=== PATIENT | female | born 1940 | race Caucasian/White ===

== ENCOUNTER → 2017-01-27 | Outpatient (CLI) | payer OTHER, BC ==
[~2017-01-27] VITALS: Ht 160 cm; Wt 77.3 kg
[~2017-01-27] MED LIST: ACETAMINOPHEN325 M1; ALEVE220 M1 PO; ALEVE220 MG PO; ARTHROTEC 50 E1 EACH PO; ARTHROTEC EC 51 EACH PO; DILAUDID 4 MG TA4 M1; DILAUDID 4 MG TA4 MG PO; DIPHENHYDRAMINE25 M3; FAMOTIDINE PO; INDERAL40 MG PO; INTRAT INTRATHECA; INTRATHECAL MED; KEFLEX500 MG; LASIX 20 MG TAB20 MG PO; LASIX 40 MG TAB40 M2 PO; METHADONE HCL5 MG PO; MIRALAX17 GM PO; OXYCODONE HCL15 MG PO; OXYCODONE-ACET1 EAC2 PO; PEPCID40 MG PO; PERCOCET 5-3251 EACH PO; PERCOCET 7.5-31 EACH PO; PHENERGAN25 M2; PRILOSEC 20 MG20 MG PO; PROPRANOLOL 1010 MG PO; ROXICODONE15 M1 PO; SIMVASTATIN40 MG PO; SKELAXIN 800 M800 M1 PO; STOOL SOFTENER1 EAC2 PO; STOOL SOFTENER50 MG PO; SYNTHROID112 MCG PO; TRAZODONE 150150 M1 PO; TRAZODONE HCL100 MG PO; ZOCOR PO; ZOCOR5 MG; [UNRECOGNIZED DRUG - OTHER]; [UNRECOGNIZED DRUG - SUPPLY]
--- NOTE | ~2017-01-27 | HPC ---
[facility] [address] [place] [address] PAIN MANAGEMENT CONSULTATION Name: ROJAS CABRERA Room #: REG Matt Jack.#: [id number] Admission: 01/27/17 Attend Phys: Savage Doll MD Discharge: Date of : 42 Report #: [id number] THIS REPORT FOR: //name// CC: Kaylee Doll DATE OF SERVICE: 01/27/2017 REASON FOR VISIT: Followup visit for chronic management of intrathecal pump with new symptoms of cervical radiculopathy. HISTORY OF PRESENT ILLNESS: Seen today for refill of her intrathecal pump, but she now has also a new symptom. She is suffering from lumbar radicular pain chronically but has new onset of cervical radicular symptoms to follow quite close with the C7-C8 distribution down into the fourth and fifth digit of her hands bilaterally. This is enough to wake her at night and causes significant pain in the neck and in the shoulders. Her intrathecal pump is due to be refilled. She has been receiving a combination of clonidine, hydromorphone and bupivacaine, which has in the past been helpful. New pump and catheter system was placed in May of last year by Dr. Lugo after revision was required and that she has done quite well since that time. Despite this aggressive intrathecal therapy, she has ongoing daily pain that she scores as high as at 9. Her back hurts, particularly when she is standing or moving in the wrong position and lying flat in bed. She gets relief from her medications in finding a comfortable place to sit. MEDICATIONS: In addition to her intrathecal pump include trazodone, omeprazole, levothyroxine, Lasix, simvastatin, MiraLax, Inderal, oxycodone 15 mg taken for breakthrough pain. ALLERGIES: None. PAST MEDICAL HISTORY: Significant for multiple skeletal comorbidities with severe arthropathy throughout multiple joints. She has had significant spinal problems with multiple surgeries including a C5-C6, C6-C7 fusion using an anterior approach in the past. She also has had severe scoliosis and spinal stenosis, degenerative disk disease and reportedly has lost up to 6 inches and height over the course of her 50s and 60s. She is now 76 with chronic intractable pain. PHYSICAL EXAMINATION: GENERAL: She was delightful and pleasant. She appears to be in some discomfort today. VITAL SIGNS: Blood pressure 148/65, heart rate is 50 and respirations are 16. [address] [address] PAIN MANAGEMENT CONSULTATION Name: ROJAS CABRERA Room #: REG CLI [facility].#: [id number] Admission: 01/27/17 Attend Phys: Savage Doll MD Discharge: Date of : 42 Report #: [id number] BMI is measured at 30.2. MUSCULOSKELETAL: Marked scoliosis of the spine is noted. She has tenderness and discomfort throughout the spine and neck. Cervical range of motion is performed with exacerbation of radiculopathy with neck extension. 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 She has normal biceps and triceps function. Most notably and examining the lower extremities, she has no evidence of hyperreflexia to suggest cord compression. IMPRESSION: 1. Cervical radiculopathy involving the C7-C8 distribution. 2. Severe scoliosis, spinal stenosis and degenerative disk disease with intractable back pain and lumbar radiculopathy. 3. Management of intrathecal infusion pump with refill. 4. Management of high risk opioid medication. 5. History of osteoarthritis, status post knee replacement, bilateral. 6. Fibromyalgia. 7. Hypothyroidism. PROCEDURE #1: Refill of intrathecal infusion pump. PROCEDURE NOTE: The patient was placed in the supine position. Skin was prepped with ChloraPrep. Skin was anesthetized with 1% lidocaine and a 30 gauge needle. A 22-gauge non-coring needle was then advanced into the intrathecal pump. Old medication was removed and discarded. The pump was then refilled with medications infused are hydromorphone 6.5, clonidine 30.3, bupivacaine 1.7, low reservoir alarm date is now 85 days and IGOR is 69 months. PROCEDURE #2: Cervical epidural steroid injection under fluoroscopic guidance. PROCEDURE NOTE: She was taken to the fluoroscopic suite for the cervical epidural placed prone. Skin was prepped with ChloraPrep and the skin was anesthetized over the C7-T1 interspace. A 20-gauge Tuohy epidural needle was advanced first attempt into the epidural space with loss of resistance technique. There was no blood nor CSF aspirated, 1 mL of Omnipaque injected. Good spread of dye observed in the epidural space, was followed by 3 mL of 0.5% lidocaine mixed with 80 mg of triamcinolone. She tolerated the cervical injection, but during transport to the recovery room, she had a severe spasm in the sacroiliac region. This required us to reposition or use heating pads and I also provided her with 10 mg of oxycodone as well as a shot of Toradol in the recovery room before discharge. She is able to be [address] [address] PAIN MANAGEMENT CONSULTATION Name: ROJAS CABRERA Room #: REG RANDALL Santiago.#: [id number] Admission: 01/27/17 Attend Phys: Savage Doll MD Discharge: Date of : 42 Report #: [id number] discharged comfortably in the care of her and a followup visit planned as needed for refill. Phone call will be placed to check on this evening. By: [id number] Savage Doll MD /nt
[2017-01-27 11:47] VITALS: BP 148/65
[2017-01-27 11:51] VITALS: BP 148/65
== END | disposition home or self-care (01) ==
LOC: PAIN 07:09
DX: M51.16 Intervertebral disc disorders with radiculopathy, lumbar region (principal); M48.06 Spinal stenosis, lumbar region; M41.86 Other forms of scoliosis, lumbar region; M79.7 Fibromyalgia; F11.23 Opioid dependence with withdrawal; E03.9 Hypothyroidism, unspecified; Z96.653 Presence of artificial knee joint, bilateral; Z87.39 Personal history of other diseases of the musculoskeletal system and connective tissue

== ENCOUNTER 2017-02-16 10:50 | Emergency (ER) | payer OTHER, BC ==
[~2017-02-16] VITALS: Ht 160 cm; Wt 76.7 kg
[2017-02-16 11:31] LABS: BASOPHILS 0.5 % (0.0-2.0); EOSINOPHILS 1.8 % (0.0-3.0); HEMATOCRIT 38.3 % (37.0-47.0); HEMOGLOBIN 13.1 gm/dL (12.0-15.0); LYMPHOCYTES 18.8 % (24.0-44.0); MCH 32.2 pg (26.0-34.0); MCHC 34.3 g/dL (28.0-37.0); MCV 93.9 fL (80.0-100.0); MONOCYTES 8.3 % (1.0-8.0); PLATELET COUNT 195 thou/uL (150-400); POLYS 70.6 % (36.0-66.0); RBC 4.07 mil/uL (4.20-5.00); RDW 13.5 % (10.5-14.5); WBC 9.9 thou/uL (4.0-11.0)
[2017-02-16 11:33] LABS: MANUAL DIFF NO
[2017-02-16 11:46] LABS: CALCIUM 8.8 mg/dL (8.5-10.1); CREATININE 0.8 mg/dL (0.6-1.3); POTASSIUM 3.5 mmol/L (3.5-5.1)
[2017-02-16 11:51] LABS: ALBUMIN 3.5 g/dL (3.4-5.0); DIRECT BILIRUBIN 0.2 mg/dL (<0.1-0.3); TOTAL BILIRUBIN 0.6 mg/dL (<0.1-1.0); TOTAL PROTEIN 6.5 g/dL (6.4-8.2)
[2017-02-16 12:25] LABS: URINE BILIRUBIN NEGATIVE (Negative); URINE BLOOD TRACE (Negative); URINE COLOR YELLOW; URINE GLUCOSE-RANDOM* NEGATIVE (Negative); URINE KETONES NEGATIVE (Negative); URINE NITRITE NEGATIVE (Negative); URINE PROTEIN (DIPSTICK) NEGATIVE (Negative); URINE UROBILINOGEN 0.2 E.U./dl (0.2-1.0)
== END 2017-02-16 14:15 | disposition home or self-care (01) ==
LOC: ER 10:50
PROVIDERS: Emergency Medicine
DX: R10.11 Right upper quadrant pain (principal); M41.9 Scoliosis, unspecified; M51.37 Other intervertebral disc degeneration, lumbosacral region; M79.7 Fibromyalgia; E03.9 Hypothyroidism, unspecified; Z85.828 Personal history of other malignant neoplasm of skin; Z90.722 Acquired absence of ovaries, bilateral; Z90.49 Acquired absence of other specified parts of digestive tract

== ENCOUNTER → 2017-03-28 | Outpatient (CLI) | payer OTHER, BC ==
[~2017-03-28] VITALS: Ht 157.5 cm; Wt 74.8 kg
--- NOTE | ~2017-03-28 | HPC ---
[facility] [address] [place] [address] PAIN MANAGEMENT CONSULTATION Name: ROJAS CABRERA Room #: REG Matt Jack.#: [id number] Admission: 03/28/17 Attend Phys: Savage Doll MD Discharge: Date of : 42 Report #: [id number] THIS REPORT FOR: //name// CC: Kaylee Doll DATE OF SERVICE: 03/28/2017 DATE OF REGISTRATION: 03/28/2017 Followup visit for management of intrathecal infusion pump. The patient returns to pain clinic today for evaluation of her intrathecal infusion pump. She had a couple of her grandchild's dog's jump on her lap and had sudden onset of pain in that area around the pump. It was sore for days. She ended up remaining in bed while the pain was present. Although the pump did not seem to be unstable and there was an excessive bruising, she has been fearful ever since that pump has moved or is no longer providing relief. She has had some increasing pain recently and wants to make sure that the pump is delivering. She is on a complex infusion, which includes hydromorphone, clonidine and bupivacaine. It has been sometimes since we increased her dose. Her daily dose currently is hydromorphone 6.5, clonidine of 30 and bupivacaine of 1.7. She has been taking some additional oral medication and she has adequate amounts of oxycodone 15 mg at home. I provided her with 120 tablets a couple of months ago. She tries not to use it. She has a second prescription to be refilled and she can use it for breakthrough pain. The importance of managing these strong medications under terms of our opioid agreement was reviewed. On physical exam, she is a bit anxious today. Her blood pressure is normal at 139/59, heart rate 64, respirations 16. She is able to move from sitting to standing position, but complains when she does so. She is able to walk with weak, but steady gait. She has marked curvature of her spine. There is tenderness across the scars of her back. Her pump is in the right lower quadrant and the abdomen is nontender at this time. I tried to move it to see if there was any loosening of the sutures that might cause flipping. I was unable to mobilize the pump in any fashion. So I think that still is in a good upright position. Straight leg raising reproduces some radicular symptoms into her legs. IMPRESSION: 1. Chronic back pain with post-laminectomy syndrome, severe scoliosis, spinal stenosis, degenerative disk disease. 2. Management of intrathecal infusion pump. Plan is to adjust the dose very [address] [address] PAIN MANAGEMENT CONSULTATION Name: CABRERAROJAS KYE Room #: REG Matt Schmidt.Chan.#: [id number] Admission: 03/28/17 Attend Phys: Savage Doll MD Discharge: Date of : 42 Report #: [id number] slightly today after we confirm that is functioning. 3. Management of high risk opioid medication. She does not need renewal of medications today. 4. Diffuse osteoarthritis, status post bilateral knee replacements. 5. Fibromyalgia. 6. Hypothyroid. 7. Cervical radiculopathy. RECOMMENDATIONS: 1. We will check up the pump today with pump diagnostics including the pump myelogram through the catheter and side port and also check of rotor to make sure the pump is functioning. 2. Possible return in a week or two for epidural steroid injection in the lumbar region. 3. Adjust pump, which was done at the conclusion of our reprogramming session. PROCEDURE: She was taken to the fluoroscopic suite for pump diagnostics. Skin was prepped with ChloraPrep. Skin was anesthetized over the side port. A 24-gauge side port needle advanced into the pump by palpation. I was able to easily aspirate 2 mL of fluid to totally clear the catheter. I then injected 3 mL of Omnipaque 240 demonstrating intrathecal spread of dye and no extravasation. Pump was then checked with a rotor test. The rotor noted to be moving appropriately during the priming bolus in a catheter clockwise fashion. My conclusion is the pump is functioning fine. The plumbing and the mechanics seem to be adequate. I will increase her pump medication slightly and I have given her reassurances that the use of some oral medication supplement at this time is okay. In terms of our opioid agreement, we reviewed and she was discharged with a followup visit for pump refill in 3-4 weeks. By: [id number] Savage Doll MD /nt
[2017-03-28 13:30] VITALS: BP 139/59
== END ==
LOC: PAIN 07:43
DX: Z45.1 Encounter for adjustment and management of infusion pump (principal); M54.12 Radiculopathy, cervical region; G89.29 Other chronic pain; M96.1 Postlaminectomy syndrome, not elsewhere classified; M48.00 Spinal stenosis, site unspecified; E03.8 Other specified hypothyroidism; M79.7 Fibromyalgia

== ENCOUNTER → 2017-04-14 | Outpatient (CLI) | payer OTHER, BC ==
[~2017-04-14] VITALS: Ht 157.5 cm; Wt 76.2 kg
--- NOTE | ~2017-04-14 | HPC ---
[facility] [address] [place] [address] PAIN MANAGEMENT CONSULTATION Name: ROJAS CABRERA Room #: REG RANDALL Dennys#: [id number] Admission: 04/14/17 Attend Phys: Savage Doll MD Discharge: Date of : 42 Report #: [id number] THIS REPORT FOR: //name// CC: Kaylee Doll DATE OF SERVICE: 04/14/2017 DATE OF REGISTRATION: 04/14/2017. REASON FOR VISIT: Followup visit for severe spinal degenerative disease, post-laminectomy syndrome, scoliosis and lumbar radiculopathy. SUBJECTIVE: The patient is here today for refill of her intrathecal infusion pump. Pain has been worsening, and she feels that her ability to function has been declining. Pain is fairly significant in the left leg where she has radicular symptoms all the way to the foot. It is worse with weightbearing. She is already on a complex infusion in her intrathecal pump, which includes hydromorphone, clonidine, and bupivacaine. Her daily dose is hydromorphone 6.5, clonidine 30 mcg per day, and bupivacaine 1.7. She also has some oral oxycodone to take for breakthrough. Today, I have agreed that we will refill her intrathecal infusion pump, adjust her dose, and we will also provide her with an epidural steroid injection under fluoroscopic guidance with hopes that we might provide some relief of her radicular symptoms. IMPRESSION: 1. Chronic low back pain with post-laminectomy syndrome, severe scoliosis and degenerative disk disease. 2. Management of intrathecal infusion pump. 3. Diffuse osteoarthritis, status post bilateral knee replacements. 4. Fibromyalgia. 5. Hypothyroidism. 6. Cervical radiculopathy. 7. Chronic intractable pain with diffuse origin. 8. Management of high-risk medication. PROCEDURE #1: She was placed in the supine position for pump refill first. Her skin was prepped with ChloraPrep. Skin was anesthetized, and a 22-gauge non-coring needle advanced in the pump. Old medication removed and discarded and refilled with clonidine, hydromorphone and bupivacaine. Reprogramming session performed. I plan to see her back in a couple of months. [address] [address] PAIN MANAGEMENT CONSULTATION Name: RICKROJAS KYE Room #: REG [facility]..#: [id number] Admission: 04/14/17 Attend Phys: Savage Doll MD Discharge: Date of : 42 Report #: [id number] PROCEDURE #2: Epidural steroid injection under fluoroscopic guidance. As recommended, she was taken to fluoroscopic suite for the injection. She was placed prone. Skin prepped with ChloraPrep. Skin was anesthetized over the L4-L5 interspace. It should be noted that the anatomy is extremely distorted in her lumbar spine. I was able to identify a location between the L4 and L5 interspinous processes and advanced the needle into the epidural space with good loss of resistance. There was no blood in her CSF aspirated. I took a lateral view, and there was no evidence of anterior spread; however, once I injected 3 mL of 1% lidocaine mixed with 80 mg of triamcinolone, she developed a fairly significant weakness, was taken to recovery room where she required stay for over an hour before she could ambulate to the car. Good news is that she had no pain during that time. I think got good coverage along the left lateral recess to provide cortisone into the location. PLAN: For her, is to follow up in the pain clinic for refill in 2 months. They will call if there are any questions regarding her injection. By: [id number] Savage Doll MD /nt
[2017-04-14 14:19] VITALS: BP 120/44
== END | disposition home or self-care (01) ==
LOC: PAIN 07:22
DX: M54.16 Radiculopathy, lumbar region (principal); M96.1 Postlaminectomy syndrome, not elsewhere classified; M41.9 Scoliosis, unspecified; M17.0 Bilateral primary osteoarthritis of knee; M79.7 Fibromyalgia; E03.9 Hypothyroidism, unspecified; M54.12 Radiculopathy, cervical region; G89.29 Other chronic pain

== ENCOUNTER → 2017-07-04 | Outpatient (CLI) | payer OTHER, BC ==
[~2017-07-04] VITALS: Ht 160 cm; Wt 74.8 kg
--- NOTE | ~2017-07-04 | HPC ---
[facility] [place] [address] PAIN MANAGEMENT CONSULTATION Name: ROJAS CABRERA Room #: REG RANDALL Jack.#: [id number] Admission: 07/04/17 Attend Phys: Savage Doll MD Discharge: Date of : 42 Report #: [id number] THIS REPORT FOR: //name// CC: KAIT Doll DATE OF SERVICE: 07/04/2017 Followup visit for chronic intractable back pain, management of intrathecal infusion pump. The patient returns to pain clinic today and this is a fairly routine visit. She has been stable on her current medication regimen. She has taken a few extra oxycodone, which she uses a supplement this month and I have agreed to renew that medication for her. Her current intrathecal infusion provides a combination of hydromorphone, clonidine and bupivacaine. She is on her second intrathecal pump, still has about 5 years remaining on the battery life of this particular device. She is here today for refill. She reports that she is having of the last 2 weeks as her , Deven has had a hip replacement. This is at times exacerbated her pain requiring her use it, but more of a breakthrough oral medication. She is at pretty high doses right now of her current medicines, I just do not increase her pump further due to risks of granuloma. MEDICATIONS: Reviewed and reconciled. ALLERGIES: None. PHYSICAL EXAMINATION: She is pleasant and upbeat today, she has marked scoliotic spine. She is able to move independently from sitting to standing position, ambulates with a slow gait. Kyphosis is noted in the standing position. She has diffuse tenderness throughout the back. She complains of pain bilaterally in both legs and multiple myofascial tender points consistent with fibromyalgia. She has a very pleasant outgoing affect. We had a nice conversation today, she does not appear to be overmedication, depressed or anxious. IMPRESSION: 1. Chronic intractable back pain with severe kyphoscoliosis. 2. Diffuse osteoarthritis, status post bilateral knee replacements. Multiple joint arthritis is noted. 3. Fibromyalgia. 4. Hypothyroidism. 5. Cervical radiculopathy. [facility] [address] [place] [address] PAIN MANAGEMENT CONSULTATION Name: ROJAS CABRERA [facility]#: [id number] Admission: 07/04/17 Attend Phys: Savage Doll MD Discharge: Date of : 42 Report #: [id number] 6. Management of intrathecal infusion pump with refill and reprogramming. 7. Management of high risk medication. PROCEDURE: Skin was prepped with ChloraPrep, skin anesthetized and a 22-gauge non-coring needle advanced in the pump. Old medication removed and discarded. Pump was refilled with hydromorphone, clonidine and bupivacaine. Daily doses are 6.8/31/1.8. IGOR is 64 months. Next refill is scheduled for 09/23/2017. Medications provided under terms of our opioid agreement today are oxycodone 15 mg 1 tablet q.6 hours p.r.n. severe pain. She was given a prescription for 120 tablets, second prescription provided for the course of her refill. Importance of safeguarding medication was discussed. Reviewed the CDC guidelines and the opioid crisis in the [place]. By: 1535 20 Savage Doll MD /nt
[2017-07-04 14:13] VITALS: BP 135/68
== END | disposition home or self-care (01) ==
LOC: PAIN 07:24
DX: Z45.1 Encounter for adjustment and management of infusion pump (principal); M41.86 Other forms of scoliosis, lumbar region; M54.5 Low back pain; G89.29 Other chronic pain; M54.12 Radiculopathy, cervical region; M17.0 Bilateral primary osteoarthritis of knee; M79.7 Fibromyalgia; E03.8 Other specified hypothyroidism; Z98.890 Other specified postprocedural states; Z79.891 Long term (current) use of opiate analgesic

== ENCOUNTER → 2017-11-24 | Outpatient (CLI) | payer OTHER, BC ==
[~2017-11-24] VITALS: Ht 160 cm; Wt 75.1 kg
[~2017-11-24] MED LIST changes: +ASPIR 8181 M1 PO
--- NOTE | ~2017-11-24 | HPC ---
[facility] [place] [address] PAIN MANAGEMENT CONSULTATION Name: ROJAS CABRERA Room #: REG Matt Jack.#: [id number] Admission: 11/24/17 Attend Phys: Savage Doll MD Discharge: Date of : 42 Report #: [id number] THIS REPORT FOR: //name// CC: Kaylee Doll DATE OF SERVICE: 11/24/2017 Followup visit for severe kyphoscoliosis and management of intrathecal infusion pump. The patient returns to the pain clinic today for refill of intrathecal infusion pump. She is doing well. She has hydromorphone, clonidine and bupivacaine infusing through her intrathecal pump. She reports that her pain has been pretty good over the last few months. No adjustment of medication will be needed. In addition to her pain pump, she is provided with oxycodone 15 mg, which she is allowed to take up to 5 times a day. She is on an opioid agreement and understands the importance of safeguarding all of her medications. The medication continues to be helpful for her. She has been able to reduce some of her medication orally because of the recent improvement in her pain. We are not sure what the cause of this improvement is, but she has remained more active. We are trying to keep her at 90 morphine milligram equivalents a day in keeping with the CDC guidelines. PHYSICAL EXAMINATION: GENERAL: Today, she is pleasant, alert and oriented, without signs of overmedication. VITAL SIGNS: Blood pressure is 135/88, heart rate is 80. MUSCULOSKELETAL: Pump is in the left lower quadrant, nontender. Marked kyphoscoliosis of the spine is noted. IMPRESSION: 1. Chronic back pain with severe kyphoscoliosis. 2. Osteoarthritis, multiple joints. 3. Fibromyalgia. 4. Cervical radiculopathy. 5. Management of high-risk medications under terms of an opioid agreement. 6. Management of intrathecal infusion pump with reprogramming and refill. PQRS STATEMENT: She does not smoke. She is not hypertensive. She is a fall risk and moves about cautiously with her scoliosis. All medications were reviewed and reconciled from her electronic medical record. We talked about continuing the activities of motion for osteoarthritis. [address] [address] PAIN MANAGEMENT CONSULTATION Name: ROJAS CABRERA Room #: REG [facility].#: [id number] Admission: 11/24/17 Attend Phys: Savage Doll MD Discharge: Date of : 42 Report #: [id number] PROCEDURE: Refill and reprogramming. DESCRIPTION OF PROCEDURE: The skin was prepped with ChloraPrep. Skin anesthetized. A 22-gauge non-coring needle advanced in the intrathecal pump. Old medication was removed and discarded. The pump was refilled with hydromorphone, clonidine and bupivacaine. Reprogramming session was performed with her daily dose is 7.8 of hydromorphone, 36 of clonidine and 2.0 of bupivacaine. Her refill interval is now 71 days. We will see her back in the pain clinic for refill sometime in January. <ELECTRONICALLY SIGNED> By: Savage Doll MD 01/18/18 [id number] [id number] Savage Doll MD /nt
[2017-11-24 13:46] VITALS: BP 121/60
== END | disposition home or self-care (01) ==
LOC: PAIN 07:20
DX: Z45.1 Encounter for adjustment and management of infusion pump (principal); M41.9 Scoliosis, unspecified; M19.90 Unspecified osteoarthritis, unspecified site; M79.7 Fibromyalgia; M54.12 Radiculopathy, cervical region

== ENCOUNTER → 2018-01-30 | Outpatient (CLI) | payer OTHER, BC ==
[~2018-01-30] VITALS: Ht 160 cm; Wt 75.6 kg
--- NOTE | ~2018-01-30 | HPC ---
[facility] [address] [address] PAIN MANAGEMENT CONSULTATION Name: ROJAS CABRERA Room #: REG [facility] Jack.#: [id number] Admission: 01/30/18 Attend Phys: Savage Doll MD Discharge: Date of : 42 Report #: [id number] THIS REPORT FOR: //name// CC: Kaylee Doll DATE OF SERVICE: 01/30/2018 Followup visit for management of intrathecal infusion pump and high-risk medications under terms of written opioid agreement. The patient is here today to refill her intrathecal pump. We have been trying to reduce her reliance on systemic opioids by increasing her intrathecal medications. She has been taking up to 5 oxycodone 15 mg tablets. She did see some improvement with her last increase. I will increase the pump again by 8% today. She has a complex infusion containing hydromorphone, clonidine, and bupivacaine. It is a 40 mL pump. On physical exam today, she is pleasant, alert and oriented. She has no signs of anxiety or depression. Her blood pressure is 132/83, heart rate 61, respirations 20, O2 sat 100%. BMI is 29. She has marked curvature and scoliosis. She has pump noted over left lower quadrant of her abdomen, which is nontender. She walks with a cane. PQRS review shows that she has history of rheumatoid arthritis involving left upper and lower extremities. She is a fall risk and needs help standing and walking using a cane. She has not fallen in the last 3 months. She is on no blood thinners and no hypertension is treated. She is on an opioid agreement, which has been signed and reviewed on several occasions, last signed on 05/17/2016. We performed a functional assessment tool which is 26/70, not too bad and improvement over her initial presentation years ago. She is at low risk for addiction. IMPRESSION: 1. Chronic low back pain with severe scoliosis. 2. Management of intrathecal infusion pump. PROCEDURE: Refill and reprogramming. Skin was prepped with ChloraPrep and anesthetized. A 22-gauge non-coring needle advanced in the pump and old medication was removed and discarded. The pump was refilled with hydromorphone, clonidine, bupivacaine and reprogramming session was performed. Her discharge programming information was provided for her as well on discharge and will be as follows: Hydromorphone 8.4 mg, clonidine 39.2 [place] [address] PAIN MANAGEMENT CONSULTATION Name: ROJAS CABRERA [facility] #: [id number] Admission: 01/30/18 Attend Phys: Savage Doll MD Discharge: Date of : 42 Report #: [id number] mcg, bupivacaine 2.2 mg per day. Estimated IGOR is 57 months. Low reservoir volume is 39.5. Refill interval is 66 days. <ELECTRONICALLY SIGNED> By: Savage Doll MD 02/27/18 1408 1627 20 Savage Doll MD /preet
[2018-01-30 13:07] VITALS: BP 132/83
== END | disposition home or self-care (01) ==
LOC: PAIN 07:20
DX: Z45.2 Encounter for adjustment and management of vascular access device (principal); G89.29 Other chronic pain; M41.9 Scoliosis, unspecified; Z98.890 Other specified postprocedural states

== ENCOUNTER → 2018-04-03 | Outpatient (CLI) | payer OTHER, BC ==
[~2018-04-03] VITALS: Ht 160 cm; Wt 76.0 kg
[~2018-04-03] MED LIST changes: -ASPIR 8181 M1 PO
--- NOTE | ~2018-04-03 | HPC ---
[facility] [place] [address] PAIN MANAGEMENT CONSULTATION Name: ROJAS CABRERA Room #: REG RNADALL Dennys#: [id number] Admission: 04/03/18 Attend Phys: Savage Doll MD Discharge: Date of : 42 Report #: [id number] THIS REPORT FOR: //name// CC: EFRAIN Doll DATE OF SERVICE: 04/03/2018 Followup visit for chronic back pain related to severe scoliosis with kyphosis. The patient returns today for refill of her intrathecal infusion pump. She was last seen 2 months ago. In addition to her clonidine, bupivacaine, and hydromorphone infusion, she receives oxycodone 10/325 four times daily. This combination has allowed her to live a normal fairly normal life despite her severe debility related to some changes throughout her spine. The patient has had joint replacement surgeries, has spinal stenosis, a cervical fusion, ankle fusion and suffers from fibromyalgia. Pump has been helpful in keeping her out of the hospital and the Emergency Room and she is also grateful for the breakthrough medication, which she tolerates well without significant side effects. She is on opioid agreement, which has been reviewed today. We talked about the CDC guidelines as well as her opioid risk. PHYSICAL EXAMINATION: The patient is pleasant, alert and oriented. She moves from sitting to standing position and walks without a cane. She is not a fall risk at this time. Pain score today is listed at anywhere between a 1 and a 10 depending on activities. With standing, her pain score is 1. Marked rotational curvature of the spine is noted. She has kyphosis as well. Scar is nontender. Straight leg raising is performed without radiculopathy. She has tenderness in multiple joints and diffuse myofascial tenderness consistent with fibromyalgia. IMPRESSION: 1. Chronic intractable back pain secondary to severe scoliosis and spondylosis. 2. Cervical radiculopathy, improved at this time. 3. History of chronic back pain and osteoarthritis. 4. Management of intrathecal infusion pump with refill and reprogramming. 5. Management of opioid medications under terms of written opioid agreement. PROCEDURE: Skin prepped with ChloraPrep. Skin anesthetized. A 22-gauge non-coring needle advanced in the pump. Old medication removed and discarded. Pump was refilled with a combination noted above. Daily doses at discharge, hydromorphone 8.4, clonidine 40, bupivacaine 2.25. Refill is scheduled for 06/08/2018. Low reservoir alarm is 2.0. Prescriptions were written for 2 months for her oral medications under terms of [place] [address] PAIN MANAGEMENT CONSULTATION Name: ROJAS CABRERA KYE Room #: REG [facility] Dennys#: [id number] Admission: 04/03/18 Attend Phys: Savage Doll MD Discharge: Date of : 42 Report #: [id number] instructions to safeguard medication carefully. We will see her back in the pain clinic in May. By: [id number] Savage Doll MD /preet
[2018-04-03 11:00] VITALS: BP 133/46
== END | disposition home or self-care (01) ==
LOC: PAIN 07:08
DX: Z45.1 Encounter for adjustment and management of infusion pump (principal); M41.86 Other forms of scoliosis, lumbar region; M47.896 Other spondylosis, lumbar region; M54.5 Low back pain; G89.29 Other chronic pain; M54.12 Radiculopathy, cervical region; M79.7 Fibromyalgia; M19.90 Unspecified osteoarthritis, unspecified site; Z79.891 Long term (current) use of opiate analgesic; Z98.890 Other specified postprocedural states; Z79.899 Other long term (current) drug therapy

== ENCOUNTER → 2018-06-05 | Outpatient (CLI) | payer OTHER, BC ==
[~2018-06-05] MED LIST changes: +ASPIR 8181 M1 PO
--- NOTE | ~2018-06-05 | HPC ---
[facility] [place] [place] [address] PAIN MANAGEMENT CONSULTATION Name: ROJAS CABRERA Room #: REG [facility] Jack.#: [id number] Admission: 06/05/18 Attend Phys: Savage Doll MD Discharge: Date of : 42 Report #: [id number] THIS REPORT FOR: //name// CC: Kaylee Doll DATE OF SERVICE: 06/05/2018 Followup visit for chronic pain related to severe spinal degeneration, scoliosis, spondylosis and radiculopathy. Management of intrathecal infusion pump and oral medications for breakthrough pain. This is a followup visit for the patient, a longstanding patient who has been managed effectively with an intrathecal infusion pump. The course over the last 60-70 days since her last refill has been stable. She has good days and bad days, which is typical for chronic pain. She was counseled. PQRS review shows that she has significant osteoarthritis in her upper extremities as well as in her hips and knees. She has severe spondylosis of the spine. She is on an opioid contract and has completed an opioid risk tool and is at low risk for addiction. Functional assessment tool also is completed every other visit or so. She does not smoke or use alcohol. She is on no blood thinners. She has not fallen in the last 3 months and her fall risk is low. Pain score varies between 1 and 10 depending on activities. Today, her pain is mostly located in the left sacroiliac joint with localized tenderness and a positive EMERALD test. PHYSICAL EXAMINATION: Blood pressure is 145/51, heart rate 51, O2 sat 95. She moves independently from sitting to standing. She has marked kyphoscoliosis. Small scars are noted in the spine from placement of her intrathecal pump. She has tenderness of a marked degree over the sacroiliac joint noted. Sensation and strength are normal in lower extremities and symmetrical. IMPRESSION: 1. Chronic intractable back pain with marked degenerative disease, severe scoliosis, and status post laminectomy syndrome. 2. Management of intrathecal infusion pump. 3. Fibromyalgia. 4. Diffuse osteoarthritis, status post bilateral knee replacements. 5. Hypothyroidism. 6. Cervical radiculopathy. 7. Management of high risk medication. PLAN: 1. Refill and reprogram intrathecal infusion pump today. [address] [address] PAIN MANAGEMENT CONSULTATION Name: ROJAS CABRERA Room #: REG Matt Noyola#: [id number] Admission: 06/05/18 Attend Phys: Savage Doll MD Discharge: Date of : 42 Report #: [id number] 2. Sacroiliac injection under fluoroscopic guidance. 3. Renew breakthrough oxycodone at 10/325 one tablet 4 times daily as needed. DESCRIPTION OF PROCEDURE: The patient was taken to fluoroscopic suite. She was placed prone, skin was prepped with ChloraPrep. Skin was anesthetized over the sacroiliac joint. A 22-gauge spinal needle was advanced in the posterior inferior aspect of the sacroiliac joint. An arthrogram was obtained. It was followed by 2 mL of 0.5% bupivacaine and 40 mg of triamcinolone. She tolerated the procedure well and was observed for 45 minutes and discharged. Followup visit planned as needed. Programming information was checked and the patient was given a copy. Risks of intrathecal pump fill complications were discussed. By: [id number] Savage Doll MD /nt
[2018-06-05 12:23] VITALS: BP 145/51
== END | disposition home or self-care (01) ==
LOC: PAIN 09:07
DX: M53.3 Sacrococcygeal disorders, not elsewhere classified (principal); Z45.1 Encounter for adjustment and management of infusion pump; M51.36 Other intervertebral disc degeneration, lumbar region; M41.86 Other forms of scoliosis, lumbar region; G89.29 Other chronic pain; E03.9 Hypothyroidism, unspecified; M54.12 Radiculopathy, cervical region; M17.0 Bilateral primary osteoarthritis of knee; Z79.891 Long term (current) use of opiate analgesic; Z98.890 Other specified postprocedural states; Z79.82 Long term (current) use of aspirin; Z79.899 Other long term (current) drug therapy
CPT/HCPCS: 62369; G0260

== ENCOUNTER → 2018-10-09 | Outpatient (CLI) | payer OTHER, BC ==
[~2018-10-09] VITALS: Ht 160 cm; Wt 74.1 kg
--- NOTE | ~2018-10-09 | HPC ---
[facility] [address] [place] [address] PAIN MANAGEMENT CONSULTATION Name: ROJAS CABRERA Room #: REG [facility] MWarner.#: [id number] Admission: 10/09/18 Attend Phys: Sarina Andujar Discharge: Date of : 42 Report #: [id number] THIS REPORT FOR: //name// CC: Kaylee Doll MD DATE OF SERVICE: 10/09/2018 Followup management for intrathecal infusion pump with refill for her chronic low back pain with radiculopathy. HISTORY OF PRESENT ILLNESS: The patient returns today for refill of her intrathecal infusion pump that she uses to help control her low back pain due to severe kyphoscoliosis and post-laminectomy syndrome. She tells me that her pain is a 3/10 today, but can be as much as 7/10 when she has been active. Lately she has been raking lives in the yard, but currently rates her pain at 3 when she is sitting and using her medications. She does have some slight right leg swelling today, the patient unsure why that is, and she tells us she was recently diagnosed with fibromyalgia, but she is not sure of that diagnosis. She is on no medications for that, she tells me. ALLERGIES: No known drug allergies. MEDICATIONS: Oxycodone 10/325 one tablet up to 4 times a day, aspirin, propranolol, MiraLax, Senokot, Zocor, Lasix, trazodone, omeprazole, and Synthroid. PQRS: 1. She has a history of osteoarthritis in multiple joints throughout her body, rheumatoid arthritis in her left and right upper extremities. 2. Height is 5 feet 3 inches, weight is 163, BMI is 28.9. 3. VITAL SIGNS: 140/58, pulse is 50, respirations 16, oxygen sat is 100%. 4. Her pain score is 3. 5. Denies dizziness, does need help walking, but has not fallen in the last 3 months. 6. She is not on any blood thinners and does not have a history of hypertension. 7. She is on opioid therapy greater than 6 weeks and has an opioid signed contract on the chart. 8. Her risk assessment tool is low and her functional assessment is 17/70. 9. She denies recreational drug use, does not smoke and does not use alcohol. We have checked prescription monitoring systems from [place] and [place] and find that she is filling her meds appropriately from Dr. Savage Doll. [address] [address] PAIN MANAGEMENT CONSULTATION Name: ROJAS CABRERA Room #: REG [facility].#: [id number] Admission: 10/09/18 Attend Phys: Sarina Andujar Discharge: Date of : 42 Report #: [id number] IMPRESSION: 1. Chronic low back pain with radiculopathy, severe kyphoscoliosis and post-laminectomy syndrome. 2. Management of intrathecal infusion pump. 3. Management of high risk medicines. 4. Fibromyalgia. 5. Osteoarthritis with history of bilateral knee replacements, osteoarthritis in her hands also. 6. Hypothyroidism. 7. Cervical radiculopathy. 8. We reviewed the fact that opiate medications are being used to provide analgesia adequate to support activities of daily living, not attempting to achieve a specific pain score on the 0-10 Visual Analog Scale. The current opiate medications are providing sufficient analgesia to allow the patient to participate in activities of daily living. The patient is not exhibiting any aberrant behavior suggestive of drug diversion. The patient is not having any adverse reactions to medications. The patient is not suffering from daytime somnolence or mental acuity changes. The patient is managing opiate-induced constipation with appropriate [id number] agents and dietary considerations. The patient was counseled on concern for caution with operating a motor vehicle while using opiate medications. A physical exam was performed and the patient's functional status was evaluated. All patients with back pain were advised against the bed rest greater than 4 days and were advised to return to normal activities. Pain score assessment was noted and the treatment plan was reviewed with the patient. All current medications, both prescribed and OTC were reviewed and reconciled on the electronic medical record. Tobacco screening was accomplished and smoking cessation was advised when indicated. BMI was noted and diet/exercise modification was recommended for all patients following outside normal parameters. I reviewed with the patient today their responsibilities to safeguard prescription medications, reviewed their responsibility to utilize medications only as prescribed by the physician. They are to seek and receive pain medications only from 1 physician group ( [facility]). They are to use 1 pharmacy and keep the clinic informed if they change pharmacies. Their responsibilities include making followup visits in a timely fashion and to avoid abrupt discontinuation of medication usage. Their responsibilities further include bringing their medications (bottles from the pharmacy with residual pills) to the visit for possible confirmation of pill counts and the patient understands it is their responsibility to submit to random drug screens to ensure both that the medications prescribed are present, and that no other controlled substances are present. All prescriptions provided today were generated electronically. [facility] [address] [place] [address] PAIN MANAGEMENT CONSULTATION Name: ROJAS CABRERA Room #: REG RANDALL Noyola#: [id number] Admission: 10/09/18 Attend Phys: Sarina Andujar Discharge: Date of : 42 Report #: [id number] PHYSICAL EXAMINATION: GENERAL: This is a very pleasant, alert and oriented, well-developed, well-nourished woman who appears her stated age. Her affect is appropriate. HEENT: Normocephalic, atraumatic. Extraocular eye muscles are intact. Mucous membranes are moist. Hearing is appropriate for her age. NECK: No JVD or adenopathy. MUSCULOSKELETAL: The patient has marked rotational curvature in her spine, has kyphosis. She is able to rise from sitting to standing position with some difficulty and does use a cane occasionally. Straight leg raising without radiculopathy. She has some tenderness in some of her joints in her lower back when moving from lying to sitting position. PROCEDURE: Refill and reprogramming of her intrathecal infusion pump. DESCRIPTION OF PROCEDURE: Skin was prepped with ChloraPrep. A 22 non-coring needle was advanced into the pump. Old medication was removed and discarded. Pump was then refilled with a combination of bupivacaine, clonidine and hydromorphone and reprogramming session was performed with no changes in her current rate of medication. Information was checked by myself and another nurse and Camille was given a copy of the telemetry report. The patient's current medication for a daily basis is hydromorphone 8.4 mg per day, clonidine 39.2 mcg per day, bupivacaine 2.2 mg per day. Her next refill date will be 12/14/2018. PLAN: 1. The patient was filled as per above with no changes in her concentration or her infusion rate. 2. Prescription for oxycodone 10/325 one tablet 4 times a day, quantity 120 to be released today and in 4 weeks. 3. The patient has some swelling and edema in her lower extremities and we encouraged her to elevate her legs today when able. The patient does take a diuretic. We questioned maybe her diet has changed slightly with increased sodium intake, the patient was unsure, but she will try to elevate her legs. If this is not helpful and the edema continues, she will notify her primary care doctor. The patient seen in collaboration today with Dr. Savage Doll. <ELECTRONICALLY SIGNED> By: Sarina Andujar 10/10/18 0840 [id number] Sarina Andujar /nt
[2018-10-09 11:12] VITALS: BP 140/58
== END | disposition home or self-care (01) ==
LOC: PAIN 07:46
DX: Z45.1 Encounter for adjustment and management of infusion pump (principal); M54.16 Radiculopathy, lumbar region; M96.1 Postlaminectomy syndrome, not elsewhere classified; G89.29 Other chronic pain; M19.90 Unspecified osteoarthritis, unspecified site; M79.7 Fibromyalgia; E03.9 Hypothyroidism, unspecified; M06.80 Other specified rheumatoid arthritis, unspecified site; M54.12 Radiculopathy, cervical region; Z79.899 Other long term (current) drug therapy; Z79.891 Long term (current) use of opiate analgesic; Z98.890 Other specified postprocedural states

== ENCOUNTER → 2018-12-11 | Outpatient (CLI) | payer OTHER, BC ==
[~2018-12-11] VITALS: Ht 160 cm; Wt 75.1 kg
--- NOTE | ~2018-12-11 | HPC ---
[facility] [address] [address] PAIN MANAGEMENT CONSULTATION Name: ROJAS CABRERA Room #: REG RANDALL Dennys#: [id number] Admission: 12/11/18 Attend Phys: Savage Doll MD Discharge: Date of : 42 Report #: [id number] THIS REPORT FOR: //name// CC: EFRAIN Doll DATE OF SERVICE: 12/11/2018 Followup visit for management of intrathecal infusion pump and oral medication for chronic pain. Chronic low back pain with radiculopathy. The patient returns to pain clinic today for refill. Her medication is helping a lot on both the intrathecal pump side as well as the oral medication. She uses oxycodone to supplement her intrathecal pump and has no significant side effects now, opioid tolerant. She uses 1 tablet 4 times daily and with this, she can get around and take care of herself. She has marked curvature and scoliosis of the spine with multiple levels of neural compression throughout the cervical and thoracic spine. MEDICATIONS: All medications reviewed and reconciled. She does take Lasix, trazodone, Zocor, Senokot, omeprazole and Synthroid. PQRS, history of osteoarthritis in nearly every joint of the body. She also has a history of rheumatoid arthritis. BMI is 28.9. Pain intensity with medication and pump, 1-2/10. She is a fall risk. Has fallen once in the last 3 months and needs to be cautious using a cane or assistive device. She is on no blood thinners. She has an opioid agreement and is considered low risk for addiction. She does not smoke. IMPRESSION: 1. Chronic intractable low back pain, post-laminectomy syndrome with radiculopathy. Severe kyphoscoliosis. 2. Management of intrathecal infusion pump. 3. Management of high risk medications. 4. Fibromyalgia. 5. Osteoarthritis. 6. Hypothyroidism. 7. Cervical radiculopathy. PLAN: Renewed her medications under terms of written opioid agreement, reviewed the discussion that she has had at each visit about safeguarding medication. We managed her medication side effects, particularly constipation effectively. [facility] [address] [place] [address] PAIN MANAGEMENT CONSULTATION Name: CABRERAROJAS Room #: REG [facility].#: [id number] Admission: 12/11/18 Attend Phys: Savage Doll MD Discharge: Date of : 42 Report #: [id number] REFILL OF INTRATHECAL INFUSION PUMP: Skin was prepped with ChloraPrep and anesthetized. A 22-gauge non-coring needle advanced in the pump. Old medication removed and discarded. Pump refilled with bupivacaine, clonidine and hydromorphone combination and reprogrammed for 39.5 mL. Her doses are relatively high, 8.4 mg of hydromorphone, 39 mcg of clonidine and 2.2 mg of bupivacaine. She tolerated the procedure well. There were no complications. Medications were provided, and I plan to see her back in the pain clinic in 2 months. By: [id number] Savage Doll MD /nt
[2018-12-11 13:08] VITALS: BP 123/55
--- NOTE | 2018-12-11 13:24 | NUR ---
Pain Clinic Assessment: 1. History of Osteoarthritis: hips arms hand fingers History of Rheumatoid Arthritis: Left Upper Extremity Right Upper Extremity 2. Height: 5 ft. 3 in. 160.0 cm. Weight: 165.6 lb. oz. 75.116 kg. Patient's BMI: 29.3 3. Vital Signs: BP: 123/55 Pulse: 51 Resp: 14 Temp: 02 Sat: 100 ECG Mon: 4. Pain Intensity: 1-2 5. Fall Risk: Dizziness: N Needs help standing or walking: Y Fallen in the last 3 months: Y Fall risk comments: 6. Patient on Blood Thinner: None 7. History of Hypertension: N 8. Opioid Therapy greater than 6 weeks: Y Opiate Contract Signed: 05/17/16 9. Risk Assessment Tool Provided: 0-LOW RISK 10. Functional Assessment Tool: 11. Recreational Drug Use: Never Drug Type: Tobacco Use: Never Smoker Tobacco Type: Amount or Packs/day: How Many Years: Alcohol Use: No Frequency: Quant:
== END | disposition home or self-care (01) ==
LOC: PAIN 07:18
DX: Z45.1 Encounter for adjustment and management of infusion pump (principal); M54.16 Radiculopathy, lumbar region; G89.29 Other chronic pain; M96.1 Postlaminectomy syndrome, not elsewhere classified; M79.7 Fibromyalgia; M19.90 Unspecified osteoarthritis, unspecified site; E03.9 Hypothyroidism, unspecified; M54.12 Radiculopathy, cervical region; Z79.899 Other long term (current) drug therapy; Z79.891 Long term (current) use of opiate analgesic; Z98.890 Other specified postprocedural states

== ENCOUNTER → 2019-02-12 | Outpatient (CLI) | payer OTHER, BC ==
[~2019-02-12] VITALS: Ht 160 cm; Wt 75.8 kg
[~2019-02-12] MED LIST changes: +GABAPENTIN 100100 MG PO
[2019-02-12 10:50] VITALS: BP 140/70
--- NOTE | 2019-02-12 11:08 | NUR ---
Pain Clinic Assessment: 1. History of Osteoarthritis: hips arms hand fingers History of Rheumatoid Arthritis: Left Upper Extremity Right Upper Extremity 2. Height: 5 ft. 3 in. 160.0 cm. Weight: 167.0 lb. oz. 75.751 kg. Patient's BMI: 29.6 3. Vital Signs: BP: 140/70 Pulse: 53 Resp: 16 Temp: 02 Sat: 100 ECG Mon: 4. Pain Intensity: 3 5. Fall Risk: Dizziness: N Needs help standing or walking: N Fallen in the last 3 months: N Fall risk comments: 6. Patient on Blood Thinner: None 7. History of Hypertension: N 8. Opioid Therapy greater than 6 weeks: Y Opiate Contract Signed: 05/17/16 9. Risk Assessment Tool Provided: 0-LOW RISK 10. Functional Assessment Tool: 11. Recreational Drug Use: Never Drug Type: Tobacco Use: Never Smoker Tobacco Type: Amount or Packs/day: How Many Years: Alcohol Use: No Frequency: Quant:
--- NOTE | 2019-02-14 15:29 | HPC ---
[facility] [address] [place] [address] PAIN MANAGEMENT CONSULTATION Name: ROJAS CABRERA Room #: REG RANDALL Dennys#: [id number] Admission: 02/12/19 ������������������ Attend Phys: Savage Doll MD Discharge: ������������������ Date of : 42 Report #: [id number] THIS REPORT FOR: //name// CC: Kaylee Doll DATE OF SERVICE: 02/12/2019 Followup visit for severe low back pain with radiculopathy, severe spondylosis. The patient returns to clinic today for refill of her intrathecal pump. She has had a rough month or so. Her pain is worsening. She complains of pain all over, mostly in her back; however, she also has pain in her legs with numbness and tingling and in her arms. She has previously been diagnosed with fibromyalgia. She has what sounds like hyperalgesia. Anything she touches she says hurts. Pain is constant and chronic. It is exacerbated by standing and relieved by both her intrathecal and oral medications. I have discussed of increasing her medication today. She has a complex infusion of hydrocodone, clonidine and bupivacaine. PQRS: History is positive for arthritis and/or rheumatoid arthritis. Multiple joints throughout the body are involved. BMI is stable around 28.5. Pain she scores is a 3/10 and she is a fall risk. She is on no blood thinners. She does not use tobacco or alcohol and her opioid agreement has been signed. She is at low risk by the ORT for addiction. PHYSICAL EXAMINATION: She is lying on the table, preparing for refill. Her blood pressure 140/70, heart rate 53, respirations 16. She is debilitated. She has marked kyphoscoliosis and rotational changes of thoracolumbar spine. There is tenderness across her back where she has scars from previous surgery. Multiple myofascial trigger points were identified consistent with fibromyalgia. IMPRESSION: 1. Chronic low back pain with severe kyphoscoliosis, post-laminectomy syndrome. 2. Fibromyalgia. 3. Management of intrathecal infusion pump with refill and reprogramming. 4. Diffuse osteoarthritis, status post bilateral knee replacements. 5. Hypothyroidism. 6. History of cervical radiculopathy. PLAN: Refill and reprogram of intrathecal infusion pump. DESCRIPTION OF PROCEDURE: Skin was prepped with ChloraPrep and anesthetized. A 22-gauge non-coring needle advanced in the pump. Old medication removed and discarded per protocol. Pump refilled with hydrocodone, clonidine and bupivacaine and a reprogramming session performed increasing her dose by 7%. [address] [address] PAIN MANAGEMENT CONSULTATION Name: ROJAS CABRERA Room #: REG [facility].#: [id number] Admission: 02/12/19 ������������������ Attend Phys: Savage Doll MD Discharge: ������������������ Date of : 42 Report #: [id number] She is now on hydromorphone 9.0, clonidine 42.0, and bupivacaine 2.4 mg per day. Her low reservoir alarm date is now 04/15/2019. She will return to the clinic as needed prior to that time. She has oral medication, which we provided her at monthly intervals per terms of our written opioid agreement. She will carefully safeguard those medications. ��������������������������������������������� <ELECTRONICALLY SIGNED> ���������������������������������������� By: Savage Doll MD ��������������������������������������������� 02/14/19 1529 [id number] Savage Doll MD /nt
== END | disposition home or self-care (01) ==
LOC: PAIN 06:57
DX: Z45.1 Encounter for adjustment and management of infusion pump (principal); M54.5 Low back pain; G89.29 Other chronic pain; M96.1 Postlaminectomy syndrome, not elsewhere classified; M79.7 Fibromyalgia; M17.0 Bilateral primary osteoarthritis of knee; E03.9 Hypothyroidism, unspecified; Z96.653 Presence of artificial knee joint, bilateral; Z79.899 Other long term (current) drug therapy; Z98.890 Other specified postprocedural states

== ENCOUNTER → 2019-04-12 | Outpatient (CLI) | payer OTHER, BC ==
[~2019-04-12] VITALS: Ht 157.5 cm; Wt 74.1 kg
--- NOTE | ~2019-04-12 | HPC ---
[facility] [place] [address] [address] [place] [address] PAIN MANAGEMENT CONSULTATION Name: ROJAS CABRERA Room #: REG RANDALL Jack.#: [id number] Admission: 04/12/19 ������������������ Attend Phys: Savage Doll MD Discharge: ������������������ Date of : 42 Report #: [id number] THIS REPORT FOR: //name// CC: Kaylee Doll DATE OF SERVICE: 04/12/2019 Followup visit for management of intrathecal infusion pump as well as management of high risk opioid medications under terms of written opioid agreement. The patient returns to pain clinic today and is doing pretty well. She has periods of time where the pain worsens dramatically, but the last several months have gone pretty smoothly. We had a big talk at last visit about planning, pacing and prioritizing. She took the discussion to heart. She continues to remain active at her passion, physical activities, gardening in the light, but has now learned that she must go very slowly and rest in between. This is a preventative from having exacerbations of her pain while remaining active. Recurrent infusion includes hydromorphone, clonidine and bupivacaine, and we do not plan on making further adjustments in her infusion today. We spent some time again today discussing the use of her oral medications for chronic pain. She is grateful for them. They provide additional measure of pain relief for her, and she has used them now for nearly a decade without complication. There has been no significant problems with her medication. She denies significant side effects. She is able to manage constipation effectively. She uses oxycodone 10/325 four times daily. We talked about perhaps very gradually trying to use a bit less medication to test the lower levels of use to the most effective dose. She carefully safeguards her medication. I have confirmed her use of medication and prescriptions on the prescription drug monitoring program. PHYSICAL EXAMINATION: Pleasant, alert female with marked kyphoscoliosis is noted even in the sitting position. She is able to independently move from sitting to standing position. She walks with a slow antalgic gait. Her blood pressure is 154/85, heart rate 50, respirations 16, O2 sat 97. There is some pain across the lumbosacral segment. She has bilateral radiating pain with positive straight leg raising. The pump is in the right lower quadrant. IMPRESSION: 1. Chronic intractable back pain with marked kyphoscoliosis. 2. Management of oral medication under terms of an opioid agreement. 3. Significant diffuse arthropathy and arthritis, status post multiple joint replacements. [address] [address] PAIN MANAGEMENT CONSULTATION Name: ROJAS CABRERA Room #: REG [facility].#: [id number] Admission: 04/12/19 ������������������ Attend Phys: Savage Doll MD Discharge: ������������������ Date of : 42 Report #: [id number] 4. Management of intrathecal infusion pump with refill and reprogramming. 5. Status post multiple spinal surgeries including cervical fusion and treatment of spinal stenosis. PROCEDURE: Refill and reprogramming. Skin was prepped with ChloraPrep. A 22-gauge non-coring needle advanced in the pump. Old medication removed and discarded per protocol. Pump was then refilled with hydromorphone, clonidine and bupivacaine. A reprogramming session was performed. Her discharge dose will be 9.0 hydromorphone, 42.0 mcg of clonidine and bupivacaine 2.4 mg per day. Her next refill is scheduled for 06/13. I renewed her medications under terms of our opioid agreement Time spent in counseling 20-25 minutes in addition to refill. Followup visit will include medication management. ��������������������������������������������� ���������������������������������������� By: ��������������������������������������������� 1750 0839 Savage Doll MD /nt
[2019-04-12 10:56] VITALS: BP 154/85
--- NOTE | 2019-04-12 10:59 | NUR ---
Pain Clinic Assessment: 1. History of Osteoarthritis: hips arms hand fingers History of Rheumatoid Arthritis: Left Upper Extremity Right Upper Extremity 2. Height: 5 ft. 2 in. 157.5 cm. Weight: 163.4 lb. oz. 74.118 kg. Patient's BMI: 29.9 3. Vital Signs: BP: 154/85 Pulse: 50 Resp: 16 Temp: 02 Sat: 97 ECG Mon: 4. Pain Intensity: 6-7 LYING 5. Fall Risk: Dizziness: N Needs help standing or walking: N Fallen in the last 3 months: N Fall risk comments: 6. Patient on Blood Thinner: None 7. History of Hypertension: N 8. Opioid Therapy greater than 6 weeks: Y Opiate Contract Signed: 05/17/16 9. Risk Assessment Tool Provided: 0-LOW RISK 10. Functional Assessment Tool: 11. Recreational Drug Use: Never Drug Type: Tobacco Use: Never Smoker Tobacco Type: Amount or Packs/day: How Many Years: Alcohol Use: No Frequency: Quant:
== END | disposition home or self-care (01) ==
LOC: PAIN 06:57
DX: Z45.1 Encounter for adjustment and management of infusion pump (principal); G89.29 Other chronic pain; M54.5 Low back pain; M41.9 Scoliosis, unspecified; M19.90 Unspecified osteoarthritis, unspecified site; Z79.891 Long term (current) use of opiate analgesic; Z98.890 Other specified postprocedural states

== ENCOUNTER → 2019-06-11 | Outpatient (CLI) | payer OTHER, BC ==
[~2019-06-11] VITALS: Ht 157.5 cm; Wt 74.2 kg
--- NOTE | ~2019-06-11 | HPC ---
[facility] [place] [address] PAIN MANAGEMENT CONSULTATION Name: ROJAS CABRERA Room #: REG RANDALL Jack.#: [id number] Admission: 06/11/19 ������������������ Attend Phys: Savage Doll MD Discharge: ������������������ Date of : 42 Report #: [id number] THIS REPORT FOR: //name// CC: EFRAIN Doll DATE OF SERVICE: 06/11/2019 Followup visit for refill and reprogramming of intrathecal infusion pump. The patient is here today for routine refill of her intrathecal infusion pump and renewal of her oral medications. She takes in addition to her intrathecal medications, oxycodone 7.5/325 one tablet 4 times daily. With the combination, she does well. She carefully safeguards her medication. We have tried to taper her systemic medications and it has been unable to do so. She is grateful for the relief that she receives from both her pump and from the systemic medications. Check of the prescription drug monitoring program shows no unexpected entries. She has completed an opioid risk tool and not considered at risk. PQRS REVIEW: 1. Positive for diffuse osteoarthritis including spondylosis. 2. She is 5 feet 2 inches with a BMI of 29.9. 3. Vital signs: Blood pressure 129/60, heart rate 51, O2 sat 98%. 4. Pain with movement, 4-5/10 with medication. 5. She is a fall risk. Needs help standing and walking. She has not fallen in the last 3 months. 6. She is on no blood thinners. 7. No history of antihypertensive medication. 8. Opioid risk tool. Opioid agreement has been signed in April 2016 and reviewed today. She carefully safeguards all medications. 9. She is at low risk for addiction by the opioid risk tool. 10. Functional assessment tool is . 11. She denies use of tobacco and alcohol. PHYSICAL EXAMINATION: VITAL SIGNS: As noted above. GENERAL: Pleasant female. MUSCULOSKELETAL: Moves independently from sitting to standing position. She walks with an antalgic gait. She is markedly kyphotic and scoliotic. She has tenderness across her low back. Bilateral straight leg raising is present, which is mild to moderate. Multiple myofascial tender points once again noted as well. IMPRESSION: [facility] [address] [place] [address] PAIN MANAGEMENT CONSULTATION Name: ROJAS CABRERA Room #: REG Matt Noyola#: [id number] Admission: 06/11/19 ������������������ Attend Phys: Savage Doll MD Discharge: ������������������ Date of : 42 Report #: [id number] 1. Chronic intractable back pain with severe degenerative kyphoscoliosis. 2. Osteoarthritis, diffuse involving hips, knees, shoulders and elbows. 3. Fibromyalgia. 4. Cervical radiculopathy. 5. Management of high risk medication, oxycodone 30 mg daily for an MME of 50. 6. Management of intrathecal infusion pump with reprogramming session. DESCRIPTION OF PROCEDURE: Skin was prepped with ChloraPrep. Skin anesthetized and a 22-gauge non-coring needle advanced in the pump. Old medication removed and discarded. Pump refilled with clonidine, bupivacaine and hydromorphone. A reprogramming session was performed. Old medication was removed and discarded by protocol. Her next refill is scheduled for 08/12/2019. Daily dose will be hydromorphone 9.0, clonidine 42.0 and bupivacaine 2.4. Followup visit planned in 2 months. ��������������������������������������������� ���������������������������������������� By: ��������������������������������������������� 1621 0839 Savage Doll MD /nt
[2019-06-11 11:37] VITALS: BP 129/68
--- NOTE | 2019-06-11 11:50 | NUR ---
Pain Clinic Assessment: 1. History of Osteoarthritis: hips arms hand fingers History of Rheumatoid Arthritis: Left Upper Extremity Right Upper Extremity 2. Height: 5 ft. 2 in. 157.5 cm. Weight: 163.6 lb. oz. 74.208 kg. Patient's BMI: 29.9 3. Vital Signs: BP: 129/68 Pulse: 51 Resp: 16 Temp: 02 Sat: 98 ECG Mon: 4. Pain Intensity: 4-5 MOVEMENT 5. Fall Risk: Dizziness: N Needs help standing or walking: Y Fallen in the last 3 months: N Fall risk comments: 6. Patient on Blood Thinner: None 7. History of Hypertension: N 8. Opioid Therapy greater than 6 weeks: Y Opiate Contract Signed: 05/17/16 9. Risk Assessment Tool Provided: 0-LOW RISK 10. Functional Assessment Tool: 11. Recreational Drug Use: Never Drug Type: Tobacco Use: Never Smoker Tobacco Type: Amount or Packs/day: How Many Years: Alcohol Use: No Frequency: Quant:
== END | disposition home or self-care (01) ==
LOC: PAIN 06:55
DX: Z45.1 Encounter for adjustment and management of infusion pump (principal); G89.29 Other chronic pain; M54.5 Low back pain; M19.90 Unspecified osteoarthritis, unspecified site; M54.12 Radiculopathy, cervical region; M79.7 Fibromyalgia; Z79.891 Long term (current) use of opiate analgesic; Z98.890 Other specified postprocedural states; Z79.899 Other long term (current) drug therapy

== ENCOUNTER → 2019-08-09 | Outpatient (CLI) | payer OTHER, BC ==
[~2019-08-09] VITALS: Ht 157.5 cm; Wt 73.0 kg
[~2019-08-09] MED LIST changes: -GABAPENTIN 100100 MG PO; +NEURONTIN 300300 M1 PO
--- NOTE | ~2019-08-09 | HPC ---
[facility] [place] [address] PAIN MANAGEMENT CONSULTATION Name: ROJAS CABRERA Room #: REG Matt MAyaz.#: [id number] Admission: 08/09/19 ������������������ Attend Phys: Savage Doll MD Discharge: ������������������ Date of : 42 Report #: [id number] THIS REPORT FOR: //name// CC: Kaylee Doll DATE OF SERVICE: 08/09/2019 Followup visit for chronic pain, management of intrathecal infusion pump with refill and reprogramming session. Management of high-risk medication oxycodone under terms of written opioid agreement. The patient returns to pain clinic today and continues to decline slightly. She is discouraged by the fact that her kyphosis continues to worsen and she walks bent over so dramatically. She has a few positions of comfort, perhaps in a recliner. She is extremely grateful for the pain relief that she receives from both the intrathecal pump and the 4 pain tablets that she takes on a schedule during the day, oxycodone 7.5/325. She safeguards her medication carefully and denies significant side effects. She has tapered to the lowest possible dose. We have tried to do this in the past. She continues to use medication on an as needed basis using it only as a supplement for intrathecal pump. PQRS REVIEW: 1. Positive for diffuse osteoarthritis including kyphosis and diffuse lumbar spondylosis. 2. BMI is 29.5. 3. Blood pressure 137/72, heart rate 47. 4. Pain intensity 3/10. 5. She is dizzy, needs help standing or walking, but has fallen in the last 3 months and would be considered a significant fall risk. Cautions were discussed. 6. She is not on a blood thinner. 7. She is not treated for hypertension. 8. She has completed an opioid agreement and is considered at low risk by the risk assessment tool. 9. Functional assessment score is 31/70. She is quite stoic. 10. She denies recreational drug use, tobacco use and alcohol. PHYSICAL EXAMINATION: VITAL SIGNS: As noted above. Marked kyphoscoliosis is noted. Tenderness throughout her low back. She has difficulty standing and straightening. Her gait is antalgic and she is bent over as she walks. She has multiple myofascial tender points. [address] [address] PAIN MANAGEMENT CONSULTATION Name: ROJAS CABRERA Room #: REG [facility].#: [id number] Admission: 08/09/19 ������������������ Attend Phys: Savage Doll MD Discharge: ������������������ Date of : 42 Report #: [id number] IMPRESSION: 1. Chronic intractable back pain with severe degenerative kyphoscoliosis. 2. Fibromyalgia. 3. History of cervical radiculopathy. 4. Osteoarthritis, multiple joints. 5. Management of high-risk medication, oxycodone 7.5/325 one tablet 4 times daily, MME equaling 45. 6. Management of intrathecal infusion pump with reprogramming and refill session today. PROCEDURE: Skin was prepped with ChloraPrep. A 22-gauge non-coring needle advanced in the center of the pump. Old medication removed and discarded. Pump was then refilled with a combination of bupivacaine, clonidine and hydromorphone. Reprogramming session then was performed. There were no complications. She tolerated the procedure well, was discharged with discussion about monitoring her pump shortly after refill in case of possible leakage or pocket fill. Her daily dose will be hydromorphone 9.0, clonidine 42.0, bupivacaine 2.4. A followup visit is scheduled planned in the Pain Clinic in 2 months. Oral medications were provided to that interval. ��������������������������������������������� ���������������������������������������� By: ��������������������������������������������� 1809 0004 Savage Doll MD /nt
[2019-08-09 11:33] VITALS: BP 137/72
--- NOTE | 2019-08-09 11:43 | NUR ---
Pain Clinic Assessment: 1. History of Osteoarthritis: hips arms hand fingers History of Rheumatoid Arthritis: Left Upper Extremity Right Upper Extremity 2. Height: 5 ft. 2 in. 157.5 cm. Weight: 161.0 lb. oz. 73.029 kg. Patient's BMI: 29.4 3. Vital Signs: BP: 137/72 Pulse: 47 Resp: 18 Temp: 02 Sat: 100 ECG Mon: 4. Pain Intensity: 3 5. Fall Risk: Dizziness: N Needs help standing or walking: Y Fallen in the last 3 months: Y Fall risk comments: 6. Patient on Blood Thinner: None 7. History of Hypertension: N 8. Opioid Therapy greater than 6 weeks: Y Opiate Contract Signed: 05/17/16 9. Risk Assessment Tool Provided: 0-LOW RISK 10. Functional Assessment Tool: 11. Recreational Drug Use: Never Drug Type: Tobacco Use: Never Smoker Tobacco Type: Amount or Packs/day: How Many Years: Alcohol Use: No Frequency: Quant:
== END | disposition home or self-care (01) ==
LOC: PAIN 06:50
DX: Z45.1 Encounter for adjustment and management of infusion pump (principal); G89.29 Other chronic pain; M41.80 Other forms of scoliosis, site unspecified; M79.7 Fibromyalgia; M19.90 Unspecified osteoarthritis, unspecified site; M47.896 Other spondylosis, lumbar region

== ENCOUNTER → 2019-10-04 | Outpatient (CLI) | payer OTHER, BC ==
[~2019-10-04] VITALS: Ht 157.5 cm; Wt 72.4 kg
[~2019-10-04] MED LIST changes: +VITAMIN B-121000 MC2 PO
[2019-10-04 13:08] VITALS: BP 124/53
--- NOTE | 2019-10-04 13:37 | NUR ---
Pain Clinic Assessment: 1. History of Osteoarthritis: hips arms hand fingers neck knees History of Rheumatoid Arthritis: pt denies ra 2. Height: 5 ft. 2 in. 157.5 cm. Weight: 159.6 lb. oz. 72.394 kg. Patient's BMI: 29.2 3. Vital Signs: BP: 124/53 Pulse: 50 Resp: 16 Temp: 02 Sat: 100 ECG Mon: 4. Pain Intensity: 2 5. Fall Risk: Dizziness: N Needs help standing or walking: Y Fallen in the last 3 months: N Fall risk comments: 6. Patient on Blood Thinner: None 7. History of Hypertension: N 8. Opioid Therapy greater than 6 weeks: Y Opiate Contract Signed: 05/17/16 9. Risk Assessment Tool Provided: 0-LOW RISK 10. Functional Assessment Tool: 11. Recreational Drug Use: Never Drug Type: Tobacco Use: Never Smoker Tobacco Type: Amount or Packs/day: How Many Years: Alcohol Use: No Frequency: Quant:
== END | disposition home or self-care (01) ==
LOC: PAIN 07:01
DX: Z45.1 Encounter for adjustment and management of infusion pump (principal); E03.9 Hypothyroidism, unspecified; E78.5 Hyperlipidemia, unspecified; M79.7 Fibromyalgia; M96.1 Postlaminectomy syndrome, not elsewhere classified; Z79.899 Other long term (current) drug therapy; Z96.659 Presence of unspecified artificial knee joint

== ENCOUNTER → 2019-11-29 | Outpatient (CLI) | payer OTHER, BC ==
[~2019-11-29] VITALS: Ht 157.5 cm; Wt 74.2 kg
--- NOTE | ~2019-11-29 | HPC ---
[facility] [address] PAIN MANAGEMENT CONSULTATION Name: ROJAS CABRERA Room #: REG RANDALL Dennys#: [id number] Admission: 11/29/19 Attend Phys: Savage Doll MD Discharge: Date of : 42 Report #: [id number] THIS REPORT FOR: //name// CC: EFRAIN Doll DATE OF SERVICE: 11/29/2019 REASON FOR VISIT: Followup visit for severe chronic back pain, diffuse lumbar and thoracic spondylosis. SUBJECTIVE: The patient is here today in followup for refill of her intrathecal infusion pump. I last saw 2 months ago. She is doing about the same; no major changes in her overall condition. Her pain is adequately managed; no change in medications is recommended at this time. She is supplementing her intrathecal pump with oxycodone 7.5/325 one tablet 4 times daily and is grateful for the relief that it provides. I will renew those medications for her today. PQRS REVIEW: Positive for diffuse osteoarthritis involving hips, hands, arms, fingers, knees, neck. Blood pressure is 122/55, heart rate 57, respirations 16, O2 sat 97. Her BMI is 29.9 and her pain intensity report today is 2/10. Her functional assessment score is 31/70. She denies falls, but she needs help in standing. She is on no blood thinning medications, nor is she on an antihypertensive. She is on an opioid agreement, however; it was signed in 2016 the last time and we reviewed the terms of that agreement. She is considered at low risk for addiction by the ORT. She denies use of tobacco or alcohol. IMPRESSION: 1. Chronic intractable low back pain with severe spondylosis. 2. Management of intrathecal infusion pump with refill and reprogramming session. 3. Management of high risk medications under terms of an opioid agreement. 4. Osteoarthritis, multiple joints. PROCEDURE: Refill and reprogramming of intrathecal infusion pump. PROCEDURE: After informed consent, skin was prepped with ChloraPrep and a 22-gauge non-coring needle was advanced in the intrathecal pump. Her old medication was removed and discarded per protocol. The pump was then refilled with a combination of medications including hydromorphone, clonidine and bupivacaine, and reprogramming session was performed to outline her new medications without change. Her next refill is scheduled for about 2 months. She will need a new pump in about 3 years. I sent her prescriptions electronically. [address] [address] PAIN MANAGEMENT CONSULTATION Name: ROJAS CABRERA Room #: REG CLI Dennys#: [id number] Admission: 11/29/19 Attend Phys: Savage Doll MD Discharge: Date of : 42 Report #: [id number] Time spent in counseling and [id number] discussion regarding medications and prescription, 15 minutes. Followup visit scheduled in January. By: 1645 0053 Savage Doll MD /preet
[2019-11-29 12:52] VITALS: BP 122/55
--- NOTE | 2019-11-29 13:13 | NUR ---
Pain Clinic Assessment: 1. History of Osteoarthritis: hips arms hand fingers neck knees History of Rheumatoid Arthritis: pt denies ra 2. Height: 5 ft. 2 in. 157.5 cm. Weight: 163.6 lb. oz. 74.208 kg. Patient's BMI: 29.9 3. Vital Signs: BP: 122/55 Pulse: 57 Resp: 16 Temp: 02 Sat: 97 ECG Mon: 4. Pain Intensity: 2 5. Fall Risk: Dizziness: N Needs help standing or walking: Y Fallen in the last 3 months: N Fall risk comments: 6. Patient on Blood Thinner: None 7. History of Hypertension: N 8. Opioid Therapy greater than 6 weeks: Y Opiate Contract Signed: 05/17/16 9. Risk Assessment Tool Provided: 0-LOW RISK 10. Functional Assessment Tool: 11. Recreational Drug Use: Never Drug Type: Tobacco Use: Never Smoker Tobacco Type: Amount or Packs/day: How Many Years: Alcohol Use: No Frequency: Quant:
== END | disposition home or self-care (01) ==
LOC: PAIN 06:46
DX: Z45.1 Encounter for adjustment and management of infusion pump (principal); G89.29 Other chronic pain; M47.896 Other spondylosis, lumbar region; M19.90 Unspecified osteoarthritis, unspecified site; Z98.890 Other specified postprocedural states; Z79.899 Other long term (current) drug therapy; Z79.891 Long term (current) use of opiate analgesic

== ENCOUNTER → 2020-01-28 | Outpatient (CLI) | payer OTHER, BC ==
[~2020-01-28] VITALS: Ht 157.5 cm; Wt 75.8 kg
--- NOTE | ~2020-01-28 | HPC ---
[facility] [address] [place] [address] PAIN MANAGEMENT CONSULTATION Name: ROJAS CABRERA Room #: REG RANDALL [facility]Warner.#: [id number] Admission: 01/28/20 Attend Phys: Savage Doll MD Discharge: Date of : 42 Report #: [id number] THIS REPORT FOR: cc: Kaylee Choudhary MD,Kaylee Doll,Savage Munoz MD ~ CC: Kaylee Doll DATE OF SERVICE: 01/28/2020 Followup visit for refill with management of intrathecal infusion pump, renewal of opioid medications under terms of written opioid agreement. Severe low back pain with marked spondylosis and kyphosis. The patient returns to pain clinic today for routine followup visit. I see at 2-month intervals to refill her medications in her intrathecal pump. She has done fairly well over the last 2 months of winter. She says that she has been trying to use less of her breakthrough pain medication and is down to about 3-4 tablets a day from her average of 4 every day. She denies any side effects, is grateful for the additional pain relief. She is at high dose on her intrathecal pump medications and we would prefer not to increase her concentrations for fear of intrathecal granuloma. PQRS REVIEW: As before with diffuse osteoarthritis. She has spondylosis, but also pain nearly all of her other joints including hips, hands, shoulders and knees. Blood pressure today is 136/61, heart rate 50, respirations 14, O2 sat 100%. Pain score is a 7/10. She needs some help with walking and uses a cane. She has not fallen in the last 3 months. She denies use of blood thinners or antihypertensive medications. She is on an opioid agreement signed many years ago and reviewed at each visit. She carefully safeguards her medication and is at low risk for addiction scoring 0 on the ORT. Her functional assessment score 31/70. She denies tobacco and alcohol. IMPRESSION: 1. Chronic intractable low back pain with severe spondylosis. 2. Refill and management of intrathecal infusion pump. 3. Management of high-risk medications under terms of an opioid agreement. 4. Multiple joint osteoarthritis. PROCEDURE: After informed consent, skin prepped with ChloraPrep and a 22-gauge non-coring needle advanced in the intrathecal pump. Old medication removed and discarded per protocol and the pump was refilled with hydromorphone, clonidine and bupivacaine. Daily doses are 9.0/42 mcg/2.4. [address] [address] PAIN MANAGEMENT CONSULTATION Name: ROJAS CABRERA [facility] #: [facility].#: [id number] Admission: 01/28/20 Attend Phys: Savage Doll MD Discharge: Date of : 42 Report #: [id number] Refill interval is about 2 months and her IGOR is 34 months. Medications were renewed for 1 month extending her current prescriptions to get her through to her next refill scheduled on 03/30/2020. Follow up in 2 months or as needed. By: [id number] Savage Doll MD /nt
[2020-01-28 10:02] VITALS: BP 136/61
--- NOTE | 2020-01-28 10:19 | NUR ---
Pain Clinic Assessment: 1. History of Osteoarthritis: hips arms hand fingers neck knees History of Rheumatoid Arthritis: pt denies ra 2. Height: 5 ft. 2 in. 157.5 cm. Weight: 167.2 lb. oz. 75.841 kg. Patient's BMI: 30.6 3. Vital Signs: BP: 136/61 Pulse: 50 Resp: 14 Temp: 02 Sat: 100 ECG Mon: 4. Pain Intensity: 7 WALKING IN 5. Fall Risk: Dizziness: N Needs help standing or walking: Y Fallen in the last 3 months: N Fall risk comments: 6. Patient on Blood Thinner: None 7. History of Hypertension: N 8. Opioid Therapy greater than 6 weeks: Y Opiate Contract Signed: 05/17/16 9. Risk Assessment Tool Provided: 0-LOW RISK 10. Functional Assessment Tool: 11. Recreational Drug Use: Never Drug Type: Tobacco Use: Never Smoker Tobacco Type: Amount or Packs/day: How Many Years: Alcohol Use: No Frequency: Quant:
== END | disposition home or self-care (01) ==
LOC: PAIN 06:38
DX: Z45.1 Encounter for adjustment and management of infusion pump (principal); G89.29 Other chronic pain; M19.90 Unspecified osteoarthritis, unspecified site; M47.896 Other spondylosis, lumbar region; Z98.890 Other specified postprocedural states; Z79.891 Long term (current) use of opiate analgesic; Z79.899 Other long term (current) drug therapy

== ENCOUNTER → 2020-03-27 | Outpatient (CLI) | payer OTHER, BC ==
[~2020-03-27] VITALS: Ht 157.5 cm; Wt 75.8 kg
--- NOTE | ~2020-03-27 | HPC ---
[facility] [place] [address] PAIN MANAGEMENT CONSULTATION Name: ROJAS CABRERA Room #: REG RANDALL Santiago.#: [id number] Admission: 03/27/20 Attend Phys: Savage Doll MD Discharge: Date of : 42 Report #: [id number] THIS REPORT FOR: cc: Kaylee Choudhary MD,Kaylee Doll,Savage Munoz MD ~ CC: Kaylee Doll DATE OF SERVICE: 03/27/2020 Followup visit for chronic low back pain with severe spondylosis and scoliosis. The patient is here today for refill of her intrathecal infusion pump and her oral medications. She has been a longstanding patient of ours dating back to the . I saw her first around 1997. She has had an intrathecal pump for management for around a decade. It provides adequate pain relief for her. She is here today for refill of her intrathecal infusion pump. We are both wearing masks because of the COVID-19 restrictions. She has had no hospitalizations, ER visits, upper respiratory tract infections or other issues. PQRS is positive for diffuse osteoarthritis involving her upper extremities, lower extremities, cervical and lumbar spine. She has chronic arthritides that are a good portion of her chronic pain. She is 5 feet 2 with a BMI of 30.5, blood pressure 152/62, heart rate 50, respirations 16, O2 sat 100, pain intensity is 5-6/10. She has not fallen in the last 3 months, but would be considered a fall risk in my opinion. We talked about cautious movements. She is on no blood thinners nor is she treated for hypertension. Her opioid agreement was initially signed around 20 years ago and she has renewed that agreement for us on a couple of occasions, recently as 4-5 years ago. She is 0 on the opioid risk tool score and her functional assessment score is not too bad at 31/70. She denies use of tobacco or alcohol. IMPRESSION: 1. Chronic intractable pain with severe scoliosis and spondylosis. 2. Multi-joint arthritis. 3. Management of high risk medications under terms of an opioid agreement. 4. Refill and reprogramming of intrathecal infusion pump. PROCEDURE: Skin was prepped with ChloraPrep. Skin anesthetized with 22-gauge non-coring needle advanced in the pump. Old medication removed and discarded per protocol. Pump was then refilled with hydromorphone, clonidine and bupivacaine and her doses remained the same. No change in her daily dose of 9.0 hydromorphone, 42 mcg of clonidine and 2.4 mg of bupivacaine. [address] [address] PAIN MANAGEMENT CONSULTATION Name: ROJAS CABRERA KYE Room #: REG CLMatt Noyola#: [id number] Admission: 03/27/20 Attend Phys: Savage Doll MD Discharge: Date of : 42 Report #: [id number] PLAN: Her next refill is scheduled for 05/28/2020. Followup visit at that time. We discussed the importance again of safeguarding all of her medication. By: [id number] Savage Doll MD /nt
[2020-03-27 12:46] VITALS: BP 152/62
--- NOTE | 2020-03-27 12:53 | NUR ---
Pain Clinic Assessment: 1. History of Osteoarthritis: hips arms hand fingers neck knees History of Rheumatoid Arthritis: Not Applicable 2. Height: 5 ft. 2 in. 157.5 cm. Weight: 167.0 lb. oz. 75.751 kg. Patient's BMI: 30.5 3. Vital Signs: BP: 152/62 Pulse: 50 Resp: 16 Temp: 02 Sat: 100 ECG Mon: 4. Pain Intensity: 5-6 5. Fall Risk: Dizziness: N Needs help standing or walking: N Fallen in the last 3 months: N Fall risk comments: 6. Patient on Blood Thinner: None 7. History of Hypertension: N 8. Opioid Therapy greater than 6 weeks: Y Opiate Contract Signed: 05/17/16 9. Risk Assessment Tool Provided: 0-LOW RISK 10. Functional Assessment Tool: 11. Recreational Drug Use: Never Drug Type: Tobacco Use: Never Smoker Tobacco Type: Amount or Packs/day: How Many Years: Alcohol Use: No Frequency: Quant:
== END | disposition home or self-care (01) ==
LOC: PAIN 06:54
DX: Z45.1 Encounter for adjustment and management of infusion pump (principal); G89.29 Other chronic pain; M41.9 Scoliosis, unspecified; M47.9 Spondylosis, unspecified; M19.90 Unspecified osteoarthritis, unspecified site; Z79.891 Long term (current) use of opiate analgesic; Z98.890 Other specified postprocedural states

== ENCOUNTER → 2020-05-26 | Outpatient (CLI) | payer OTHER, BC ==
[~2020-05-26] VITALS: Ht 157.5 cm; Wt 75.3 kg
--- NOTE | ~2020-05-26 | HPC ---
[facility] [address]in [place] [address] PAIN MANAGEMENT CONSULTATION Name: ROJAS CABRERA Room #: REG RANDALL Dennys#: [id number] Admission: 05/26/20 Attend Phys: Savage Doll MD Discharge: Date of : 42 Report #: [id number] THIS REPORT FOR: cc: Efrain Choudhary MD,Efrain Doll,Savage Munoz MD ~ CC: EFRAIN Doll DATE OF SERVICE: 05/26/2020 Followup visit for management of intrathecal pump. Chronic intractable low back pain with severe spondylosis and scoliosis. This is a followup visit for the patient to refill her intrathecal pump. She was last seen in the first part of March. She complains mostly of pain with standing and she is losing some trunk stability. She has pain with forward flexion and it is hard for her to sit upright. She tends to lean forward. She has a brace, but it does not hold her up in that position. We talked today about a TLSO brace. She will think about it. She has had no significant changes in her health history since I last saw her. She is carefully wearing a mask due to COVID restrictions. Her pump is infusing bupivacaine, clonidine and hydromorphone. No dose adjustments will be made today. It is possible that she could use some truncal weakness from medication, but is unusual at a low dose of bupivacaine less than 3 mg per day. PQRS: Positive for significant spondylosis, arthritis in multiple joints and chronic pain. BMI is stable at 30.4. Blood pressure 126/54, heart rate 51, respirations 16. She has no history of hypertension. Her pain intensity is 6. She has not fallen in the last week, but has fallen in the last 3 months. Her instability is mostly related to her progressive scoliosis. It is hard for her to get it balanced and she has some weakness as mentioned in the mid thorax. We will hopefully make some adjustments with that if I can talk her into trying a TLSO brace. She is on no blood thinners. She has an opioid agreement for a small amount of breakthrough medication that I provide for her under terms of written opioid agreement. An ORT score is 0 suggesting low risk for addiction. We reviewed the terms of our agreement and I have also reviewed the prescription drug monitoring program at the [facility] and there are no unexpected entries. IMPRESSION: 1. Chronic intractable low back pain with severe scoliosis and spondylosis. 2. Multi-joint arthritis. [address] [address] PAIN MANAGEMENT CONSULTATION Name: ROJAS CABRERA [id number] Admission: 05/26/20 Attend Phys: Savage Doll MD Discharge: Date of : 42 Report #: [id number] 3. Management of high-risk medications. PROCEDURE: Refill and reprogramming of intrathecal pump. Skin was prepped with ChloraPrep. A 22-gauge non-coring needle advanced in the pump. Old medication removed and discarded per protocol. Pump refilled with bupivacaine, clonidine and hydromorphone and reprogramming session was performed. She will remain at 9 mg of hydromorphone, 42 mcg of clonidine and 2.4 mg of bupivacaine. She was discharged with followup prescriptions and I plan to see her back in late June. By: [id number] Savage Doll MD /nt
[2020-05-26 12:55] VITALS: BP 126/54
--- NOTE | 2020-05-26 13:10 | NUR ---
Pain Clinic Assessment: 1. History of Osteoarthritis: hips arms hand fingers neck knees History of Rheumatoid Arthritis: Not Applicable 2. Height: 5 ft. 2 in. 157.5 cm. Weight: 166.0 lb. oz. 75.297 kg. Patient's BMI: 30.4 3. Vital Signs: BP: 126/54 Pulse: 51 Resp: 16 Temp: 02 Sat: 97 ECG Mon: 4. Pain Intensity: 6-7 5. Fall Risk: Dizziness: N Needs help standing or walking: Y Fallen in the last 3 months: Y Fall risk comments: 6. Patient on Blood Thinner: None 7. History of Hypertension: N 8. Opioid Therapy greater than 6 weeks: Y Opiate Contract Signed: 05/17/16 9. Risk Assessment Tool Provided: 0-LOW RISK 10. Functional Assessment Tool: 11. Recreational Drug Use: Never Drug Type: Tobacco Use: Never Smoker Tobacco Type: Amount or Packs/day: How Many Years: Alcohol Use: No Frequency: Quant:
== END | disposition home or self-care (01) ==
LOC: PAIN 06:52
PROVIDERS: ATTEND Anesthesiology Pain Medicine
DX: Z45.1 Encounter for adjustment and management of infusion pump (principal); G89.29 Other chronic pain; M47.896 Other spondylosis, lumbar region; M41.86 Other forms of scoliosis, lumbar region; Z98.890 Other specified postprocedural states; Z79.899 Other long term (current) drug therapy; Z79.891 Long term (current) use of opiate analgesic

== ENCOUNTER → 2020-07-24 | Outpatient (CLI) | payer OTHER, BC ==
[~2020-07-24] VITALS: Ht 157.5 cm; Wt 74.1 kg
[~2020-07-24] MED LIST changes: +ENDOCET 10-3251 EACH PO
--- NOTE | ~2020-07-24 | HPC ---
[facility] [place] [address] PAIN MANAGEMENT CONSULTATION Name: ROJAS CABRERA Room #: REG RANDALL Jack.#: [id number] Admission: 07/24/20 Attend Phys: Savage Doll MD Discharge: Date of : 42 Report #: [id number] THIS REPORT FOR: cc: Kaylee Choudhary MD,Kaylee Doll,Savage Munoz MD ~ CC: Kaylee Doll DATE OF SERVICE: 07/24/2020 Followup visit for management of intrathecal infusion pump and renewal of oral medication. The patient returns to pain clinic today for refill of her intrathecal infusion pump. It is infusing a complex infusion of hydromorphone, clonidine and bupivacaine. She has done well with her current regimen. She has a 40 mL pump, typically refill about every 60-70 days. She says she is doing well. No need to change any of her adjustments or adjust any of her infusion regimen. She has been stable at this dose for some time. She is grateful for the pain relief that it provides keeping her pain at level of 7/10. PQRS is positive for osteoarthritis involving hips, arms, hands, fingers, neck, and knees. Her BMI is 29.9. Blood pressure 118/52, heart rate 51, respirations 16, O2 sat 98, pain intensity is 7. She has lost about 6 inches in height due to her degenerative spine disease. She has not fallen and needs help walking or standing. She uses a walker or a cane. She is on no blood thinners, no history of hypertension. Opioid agreement has been signed and she is considered at low risk by the opioid risk tool assessment. Functional assessment score continues to be pretty good given her debility and she scores a 36 today. She denies tobacco and alcohol. IMPRESSION: Chronic intractable back pain with severe scoliosis and spondylosis, multi-joint arthritis. PROCEDURE: Refill and reprogramming of intrathecal infusion pump. Skin was prepped with ChloraPrep. A 22-gauge non-coring needle advanced in the pump. Old medication removed and discarded per protocol. Pump was then refilled and a reprogramming session performed. Programming information was [facility] [address] [place] [address] PAIN MANAGEMENT CONSULTATION Name: ROJAS CABRERA Room #: REG [facility]#: [id number] Admission: 07/24/20 Attend Phys: Savage Doll MD Discharge: Date of : 42 Report #: [id number] checked by myself and the nurse and copy given to the patient. She was to be seen back in the clinic around 09/25. By: [id number] Savage Doll MD /nt
[2020-07-24 11:14] VITALS: BP 118/52
--- NOTE | 2020-07-24 11:29 | NUR ---
Pain Clinic Assessment: 1. History of Osteoarthritis: hips arms hand fingers neck knees History of Rheumatoid Arthritis: DENIES 2. Height: 5 ft. 2 in. 157.5 cm. Weight: 163.4 lb. oz. 74.118 kg. Patient's BMI: 29.9 3. Vital Signs: BP: 118/52 Pulse: 51 Resp: 16 Temp: 02 Sat: 98 ECG Mon: 4. Pain Intensity: 7 5. Fall Risk: Dizziness: N Needs help standing or walking: Y Fallen in the last 3 months: N Fall risk comments: 6. Patient on Blood Thinner: None 7. History of Hypertension: N 8. Opioid Therapy greater than 6 weeks: Y Opiate Contract Signed: 05/17/16 9. Risk Assessment Tool Provided: 0-LOW RISK 10. Functional Assessment Tool: 11. Recreational Drug Use: Never Drug Type: Tobacco Use: Never Smoker Tobacco Type: Amount or Packs/day: How Many Years: Alcohol Use: No Frequency: Quant:
== END | disposition home or self-care (01) ==
LOC: PAIN 06:54
PROVIDERS: ATTEND Anesthesiology Pain Medicine
DX: G89.29 Other chronic pain (principal); M47.9 Spondylosis, unspecified; M19.90 Unspecified osteoarthritis, unspecified site; Z79.899 Other long term (current) drug therapy; Z98.890 Other specified postprocedural states

== ENCOUNTER → 2020-09-22 | Outpatient (CLI) | payer OTHER, BC ==
[~2020-09-22] VITALS: Ht 160 cm; Wt 72.6 kg
[2020-09-22 12:46] VITALS: BP 136/44
--- NOTE | 2020-09-22 12:53 | NUR ---
Pain Clinic Assessment: 1. History of Osteoarthritis: hips arms hand fingers neck knees History of Rheumatoid Arthritis: DENIES 2. Height: 5 ft. 3 in. 160.0 cm. Weight: 160.0 lb. oz. 72.576 kg. Patient's BMI: 28.4 3. Vital Signs: BP: 136/44 Pulse: 49 Resp: 16 Temp: 02 Sat: 99 ECG Mon: 4. Pain Intensity: 3 SITTING, 6 EARLIER 5. Fall Risk: Dizziness: N Needs help standing or walking: N Fallen in the last 3 months: N Fall risk comments: 6. Patient on Blood Thinner: None 7. History of Hypertension: N 8. Opioid Therapy greater than 6 weeks: Y Opiate Contract Signed: 05/17/16 9. Risk Assessment Tool Provided: 0-LOW RISK 10. Functional Assessment Tool: 11. Recreational Drug Use: Never Drug Type: Tobacco Use: Never Smoker Tobacco Type: Amount or Packs/day: How Many Years: Alcohol Use: No Frequency: Quant:
== END | disposition home or self-care (01) ==
LOC: PAIN 07:05
PROVIDERS: ATTEND Anesthesiology Pain Medicine
DX: Z45.1 Encounter for adjustment and management of infusion pump (principal); G89.29 Other chronic pain; M54.5 Low back pain; M41.86 Other forms of scoliosis, lumbar region; Z79.891 Long term (current) use of opiate analgesic; Z98.890 Other specified postprocedural states; Z79.899 Other long term (current) drug therapy

== ENCOUNTER → 2020-11-24 | Outpatient (CLI) | payer OTHER, BC ==
[~2020-11-24] VITALS: Ht 160 cm; Wt 75.4 kg
[~2020-11-24] MED LIST changes: +FIBER350 GM
[2020-11-24 12:28] VITALS: BP 125/82
--- NOTE | 2020-11-24 12:34 | NUR ---
Pain Clinic Assessment: 1. History of Osteoarthritis: hips arms hand fingers neck knees History of Rheumatoid Arthritis: DENIES 2. Height: 5 ft. 3 in. 160.0 cm. Weight: 166.2 lb. oz. 75.388 kg. Patient's BMI: 29.4 3. Vital Signs: BP: 125/82 Pulse: 55 Resp: 16 Temp: 02 Sat: 99 ECG Mon: 4. Pain Intensity: 5 5. Fall Risk: Dizziness: N Needs help standing or walking: N Fallen in the last 3 months: N Fall risk comments: 6. Patient on Blood Thinner: None 7. History of Hypertension: N 8. Opioid Therapy greater than 6 weeks: Y Opiate Contract Signed: 05/17/16 9. Risk Assessment Tool Provided: 0-LOW RISK 10. Functional Assessment Tool: 11. Recreational Drug Use: Never Drug Type: Tobacco Use: Never Smoker Tobacco Type: Amount or Packs/day: How Many Years: Alcohol Use: No Frequency: Quant:
== END | disposition home or self-care (01) ==
LOC: PAIN 06:59
PROVIDERS: ATTEND Anesthesiology Pain Medicine
DX: Z45.1 Encounter for adjustment and management of infusion pump (principal); G89.29 Other chronic pain; M41.9 Scoliosis, unspecified; M19.90 Unspecified osteoarthritis, unspecified site; Z79.891 Long term (current) use of opiate analgesic; Z98.890 Other specified postprocedural states

== ENCOUNTER → 2021-01-22 | Outpatient (CLI) | payer OTHER, BC ==
[~2021-01-22] VITALS: Ht 160 cm; Wt 75.2 kg
[2021-01-22 12:46] VITALS: BP 129/57
--- NOTE | 2021-01-22 13:13 | NUR ---
Pain Clinic Assessment: 1. History of Osteoarthritis: hips arms hand fingers neck knees History of Rheumatoid Arthritis: DENIES 2. Height: 5 ft. 3 in. 160.0 cm. Weight: 165.8 lb. oz. 75.206 kg. Patient's BMI: 29.4 3. Vital Signs: BP: 129/57 Pulse: 54 Resp: 16 Temp: 02 Sat: 96 ECG Mon: 4. Pain Intensity: 5 5. Fall Risk: Dizziness: N Needs help standing or walking: Y Fallen in the last 3 months: N Fall risk comments: 6. Patient on Blood Thinner: None 7. History of Hypertension: N 8. Opioid Therapy greater than 6 weeks: Y Opiate Contract Signed: 05/17/16 9. Risk Assessment Tool Provided: 0-LOW RISK 10. Functional Assessment Tool: 11. Recreational Drug Use: Never Drug Type: Tobacco Use: Never Smoker Tobacco Type: Amount or Packs/day: How Many Years: Alcohol Use: No Frequency: Quant:
== END | disposition home or self-care (01) ==
LOC: PAIN 06:56
PROVIDERS: ATTEND Anesthesiology Pain Medicine
DX: Z45.1 Encounter for adjustment and management of infusion pump (principal); M54.16 Radiculopathy, lumbar region; G89.29 Other chronic pain; M41.86 Other forms of scoliosis, lumbar region; M19.90 Unspecified osteoarthritis, unspecified site; Z79.891 Long term (current) use of opiate analgesic; Z98.890 Other specified postprocedural states; Z79.899 Other long term (current) drug therapy

== ENCOUNTER → 2021-03-23 | Outpatient (CLI) | payer OTHER, BC ==
[~2021-03-23] VITALS: Ht 160 cm; Wt 74.8 kg
[2021-03-23 13:01] VITALS: BP 122/62
--- NOTE | 2021-03-23 13:11 | NUR ---
Pain Clinic Assessment: 1. History of Osteoarthritis: hips arms hand fingers neck knees History of Rheumatoid Arthritis: DENIES 2. Height: 5 ft. 3 in. 160.0 cm. Weight: 164.8 lb. oz. 74.753 kg. Patient's BMI: 29.2 3. Vital Signs: BP: 122/62 Pulse: 62 Resp: 16 Temp: 02 Sat: 96 ECG Mon: 4. Pain Intensity: 1 5. Fall Risk: Dizziness: N Needs help standing or walking: Y Fallen in the last 3 months: N Fall risk comments: 6. Patient on Blood Thinner: None 7. History of Hypertension: N 8. Opioid Therapy greater than 6 weeks: Y Opiate Contract Signed: 05/17/16 9. Risk Assessment Tool Provided: 0-LOW RISK 10. Functional Assessment Tool: 11. Recreational Drug Use: Never Drug Type: Tobacco Use: Never Smoker Tobacco Type: Amount or Packs/day: How Many Years: Alcohol Use: No Frequency: Quant:
== END | disposition home or self-care (01) ==
LOC: PAIN 12:03
PROVIDERS: ATTEND Anesthesiology Pain Medicine
DX: Z45.1 Encounter for adjustment and management of infusion pump (principal); G89.29 Other chronic pain; M54.9 Dorsalgia, unspecified; M41.86 Other forms of scoliosis, lumbar region; M19.90 Unspecified osteoarthritis, unspecified site; Z98.890 Other specified postprocedural states; Z79.899 Other long term (current) drug therapy; Z79.891 Long term (current) use of opiate analgesic

== ENCOUNTER → 2021-05-21 | Outpatient (CLI) | payer OTHER, BC ==
[~2021-05-21] VITALS: Ht 160 cm; Wt 76.2 kg
[2021-05-21 13:03] VITALS: BP 117/59
== END | disposition home or self-care (01) ==
LOC: PAIN 10:58
PROVIDERS: ATTEND Anesthesiology Pain Medicine
DX: Z45.1 Encounter for adjustment and management of infusion pump (principal); G89.29 Other chronic pain; M47.26 Other spondylosis with radiculopathy, lumbar region; M41.86 Other forms of scoliosis, lumbar region; M19.90 Unspecified osteoarthritis, unspecified site; Z98.890 Other specified postprocedural states; Z79.899 Other long term (current) drug therapy; Z79.891 Long term (current) use of opiate analgesic

== ENCOUNTER → 2021-06-15 | Outpatient (CLI) | payer OTHER, BC ==
[~2021-06-15] VITALS: Ht 160 cm; Wt 74.3 kg
[2021-06-15 12:47] VITALS: BP 125/53
--- NOTE | 2021-06-15 13:06 | NUR ---
Pain Clinic Assessment: 1. History of Osteoarthritis: hips arms hand fingers neck knees History of Rheumatoid Arthritis: DENIES 2. Height: 5 ft. 3 in. 160.0 cm. Weight: 163.8 lb. oz. 74.299 kg. Patient's BMI: 29.0 3. Vital Signs: BP: 125/53 Pulse: 55 Resp: 18 Temp: 02 Sat: 98 ECG Mon: 4. Pain Intensity: 4 TO 10 5. Fall Risk: Dizziness: N Needs help standing or walking: Y Fallen in the last 3 months: N Fall risk comments: 6. Patient on Blood Thinner: None 7. History of Hypertension: N 8. Opioid Therapy greater than 6 weeks: Y Opiate Contract Signed: 05/17/16 9. Risk Assessment Tool Provided: 0-LOW RISK 10. Functional Assessment Tool: 11. Recreational Drug Use: Never Drug Type: Tobacco Use: Never Smoker Tobacco Type: Amount or Packs/day: How Many Years: Alcohol Use: No Frequency: Quant:
== END | disposition home or self-care (01) ==
LOC: PAIN 11:13
PROVIDERS: ATTEND Anesthesiology Pain Medicine
DX: M54.16 Radiculopathy, lumbar region (principal); G89.29 Other chronic pain; M19.90 Unspecified osteoarthritis, unspecified site; Z98.890 Other specified postprocedural states; Z79.899 Other long term (current) drug therapy

== ENCOUNTER → 2021-07-20 | Outpatient (CLI) | payer OTHER, BC ==
[~2021-07-20] VITALS: Ht 160 cm; Wt 75.5 kg
[2021-07-20 12:37] VITALS: BP 155/53
--- NOTE | 2021-07-20 12:47 | NUR ---
Pain Clinic Assessment: 1. History of Osteoarthritis: hips arms hand fingers neck knees History of Rheumatoid Arthritis: DENIES 2. Height: 5 ft. 3 in. 160.0 cm. Weight: 166.4 lb. oz. 75.479 kg. Patient's BMI: 29.5 3. Vital Signs: BP: 155/53 Pulse: 54 Resp: 16 Temp: 02 Sat: 95 ECG Mon: 4. Pain Intensity: 5 5. Fall Risk: Dizziness: N Needs help standing or walking: Y Fallen in the last 3 months: N Fall risk comments: 6. Patient on Blood Thinner: None 7. History of Hypertension: N 8. Opioid Therapy greater than 6 weeks: Y Opiate Contract Signed: 05/17/16 9. Risk Assessment Tool Provided: 0-LOW RISK 10. Functional Assessment Tool: 11. Recreational Drug Use: Never Drug Type: Tobacco Use: Never Smoker Tobacco Type: Amount or Packs/day: How Many Years: Alcohol Use: No Frequency: Quant:
== END | disposition home or self-care (01) ==
LOC: PAIN 11:57
PROVIDERS: ATTEND Anesthesiology Pain Medicine
DX: Z45.1 Encounter for adjustment and management of infusion pump (principal); M47.896 Other spondylosis, lumbar region; G89.29 Other chronic pain; M19.90 Unspecified osteoarthritis, unspecified site; Z98.890 Other specified postprocedural states; Z79.899 Other long term (current) drug therapy

== ENCOUNTER → 2021-09-17 | Outpatient (CLI) | payer OTHER, BC ==
[~2021-09-17] VITALS: Ht 157.5 cm; Wt 74.9 kg
[2021-09-17 13:05] VITALS: BP 152/52
--- NOTE | 2021-09-17 13:16 | NUR ---
Pain Clinic Assessment: 1. History of Osteoarthritis: hips arms hand fingers neck knees History of Rheumatoid Arthritis: DENIES 2. Height: 5 ft. 2 in. 157.5 cm. Weight: 165.2 lb. oz. 74.934 kg. Patient's BMI: 30.2 3. Vital Signs: BP: 152/52 Pulse: 54 Resp: 16 Temp: 02 Sat: 98 ECG Mon: 4. Pain Intensity: 4 5. Fall Risk: Dizziness: N Needs help standing or walking: Y Fallen in the last 3 months: N Fall risk comments: 6. Patient on Blood Thinner: None 7. History of Hypertension: N 8. Opioid Therapy greater than 6 weeks: Y Opiate Contract Signed: 05/17/16 9. Risk Assessment Tool Provided: 0-LOW RISK 10. Functional Assessment Tool: 11. Recreational Drug Use: Never Drug Type: Tobacco Use: Never Smoker Tobacco Type: Amount or Packs/day: How Many Years: Alcohol Use: No Frequency: Quant:
== END | disposition home or self-care (01) ==
LOC: PAIN 12:29
PROVIDERS: ATTEND Anesthesiology Pain Medicine
DX: Z45.1 Encounter for adjustment and management of infusion pump (principal); G89.29 Other chronic pain; M41.86 Other forms of scoliosis, lumbar region; M54.9 Dorsalgia, unspecified; M19.90 Unspecified osteoarthritis, unspecified site; Z98.890 Other specified postprocedural states; Z79.899 Other long term (current) drug therapy

== ENCOUNTER → 2021-11-16 | Outpatient (CLI) | payer OTHER, BC ==
[~2021-11-16] VITALS: Ht 160 cm; Wt 77.8 kg
[2021-11-16 12:57] VITALS: BP 144/53
--- NOTE | 2021-11-16 13:10 | NUR ---
Pain Clinic Assessment: 1. History of Osteoarthritis: hips arms hand fingers neck knees History of Rheumatoid Arthritis: DENIES 2. Height: 5 ft. 3 in. 160.0 cm. Weight: 171.6 lb. oz. 77.837 kg. Patient's BMI: 30.4 3. Vital Signs: BP: 144/53 Pulse: 61 Resp: 14 Temp: 02 Sat: 100 ECG Mon: 4. Pain Intensity: 4 TO 5 5. Fall Risk: Dizziness: Y Needs help standing or walking: Y Fallen in the last 3 months: N Fall risk comments: 6. Patient on Blood Thinner: None 7. History of Hypertension: N 8. Opioid Therapy greater than 6 weeks: Y Opiate Contract Signed: 05/17/16 9. Risk Assessment Tool Provided: 0-LOW RISK 10. Functional Assessment Tool: 11. Recreational Drug Use: Never Drug Type: Tobacco Use: Never Smoker Tobacco Type: Amount or Packs/day: How Many Years: Alcohol Use: No Frequency: Quant:
== END | disposition home or self-care (01) ==
LOC: PAIN 10:41
PROVIDERS: ATTEND Anesthesiology Pain Medicine
DX: Z45.1 Encounter for adjustment and management of infusion pump (principal); M46.1 Sacroiliitis, not elsewhere classified; G89.29 Other chronic pain; M19.90 Unspecified osteoarthritis, unspecified site; Z98.890 Other specified postprocedural states; Z79.899 Other long term (current) drug therapy

== ENCOUNTER → 2021-12-04 | Outpatient (CLI) | payer OTHER, BC | LOC: CAT 10:02 | PROVIDERS: ATTEND Anesthesiology Pain Medicine | DX: M16.0 Bilateral primary osteoarthritis of hip (principal); M47.818 Spondylosis without myelopathy or radiculopathy, sacral and sacrococcygeal region; R10.2 Pelvic and perineal pain; M41.86 Other forms of scoliosis, lumbar region; M47.816 Spondylosis without myelopathy or radiculopathy, lumbar region ==

== ENCOUNTER → 2021-12-04 | Outpatient (CLI) | payer OTHER, BC ==
[~2021-12-04] VITALS: Ht 160 cm; Wt 77.6 kg
[2021-12-04 11:19] VITALS: BP 120/71
--- NOTE | 2021-12-04 11:22 | NUR ---
Pain Clinic Assessment: 1. History of Osteoarthritis: hips arms hand fingers neck knees History of Rheumatoid Arthritis: DENIES 2. Height: 5 ft. 3 in. 160.0 cm. Weight: 171.0 lb. oz. 77.565 kg. Patient's BMI: 30.3 3. Vital Signs: BP: 120/71 Pulse: 54 Resp: 16 Temp: 02 Sat: 94 ECG Mon: 4. Pain Intensity: 8 5. Fall Risk: Dizziness: N Needs help standing or walking: N Fallen in the last 3 months: N Fall risk comments: 6. Patient on Blood Thinner: None 7. History of Hypertension: N 8. Opioid Therapy greater than 6 weeks: Y Opiate Contract Signed: 05/17/16 9. Risk Assessment Tool Provided: 0-LOW RISK 10. Functional Assessment Tool: 11. Recreational Drug Use: Never Drug Type: Tobacco Use: Never Smoker Tobacco Type: Amount or Packs/day: How Many Years: Alcohol Use: No Frequency: Quant:
== END | disposition home or self-care (01) ==
LOC: PAIN 07:03
PROVIDERS: ATTEND Anesthesiology Pain Medicine
DX: M51.16 Intervertebral disc disorders with radiculopathy, lumbar region (principal); M47.26 Other spondylosis with radiculopathy, lumbar region; G89.29 Other chronic pain; M19.90 Unspecified osteoarthritis, unspecified site; Z98.890 Other specified postprocedural states; Z79.899 Other long term (current) drug therapy

== ENCOUNTER → 2022-01-04 | Outpatient (CLI) | payer OTHER, BC ==
[~2022-01-04] VITALS: Ht 160 cm; Wt 75.5 kg
[2022-01-04 11:14] VITALS: BP 155/60
--- NOTE | 2022-01-04 11:31 | NUR ---
Pain Clinic Assessment: 1. History of Osteoarthritis: hips arms hand fingers neck knees History of Rheumatoid Arthritis: DENIES 2. Height: 5 ft. 3 in. 160.0 cm. Weight: 166.4 lb. oz. 75.479 kg. Patient's BMI: 29.5 3. Vital Signs: BP: 155/60 Pulse: 51 Resp: 16 Temp: 02 Sat: 99 ECG Mon: 4. Pain Intensity: 2 5. Fall Risk: Dizziness: N Needs help standing or walking: Y Fallen in the last 3 months: N Fall risk comments: 6. Patient on Blood Thinner: None 7. History of Hypertension: N 8. Opioid Therapy greater than 6 weeks: Y Opiate Contract Signed: 05/17/16 9. Risk Assessment Tool Provided: 0-LOW RISK 10. Functional Assessment Tool: 11. Recreational Drug Use: Never Drug Type: Tobacco Use: Never Smoker Tobacco Type: Amount or Packs/day: How Many Years: Alcohol Use: No Frequency: Quant:
== END ==
LOC: PAIN 08:54
PROVIDERS: ATTEND Anesthesiology Pain Medicine
DX: M47.26 Other spondylosis with radiculopathy, lumbar region (principal); M54.50 Low back pain, unspecified